=== PATIENT | male | born 1950 | race Caucasian/White ===

== ENCOUNTER 2019-06-17 07:04 | Emergency (ER) | payer MEDICARE ==
[~2019-06-17] VITALS: Ht 182.9 cm; Wt 74.9 kg
[2019-06-17] MEDS ORDERED: ondansetron/PF 4mg/2ml inj IV ONE (07:15)
--- NOTE | 2019-06-17 07:33 | NUR ---
Dr. Wells at bedside.
[2019-06-17] MEDS ORDERED: normal saline 1000ML IV soln IVB ONE (07:50)
[2019-06-17 08:03] LABS: BASOPHILS % (AUTO) 0.7 % (0-1); EOSINOPHILS # (AUTO) 0.3 X10'3 (0-0.9); EOSINOPHILS % (AUTO) 4.2 % (0-6); HEMATOCRIT 29.1 % (42.0-52.0); HEMOGLOBIN 9.6 g/dl (14.0-17.9); LYMPHOCYTES # (AUTO) 1.2 X10'3 (1.1-4.8); LYMPHOCYTES % (AUTO) 16.9 % (21-51); MEAN CORPUSCULAR HEMOGLOBIN 30.2 PG (27.0-31.0); MEAN CORPUSCULAR HGB CONC 32.8 g/dL (33.0-36.5); MEAN CORPUSCULAR VOLUME 92.1 FL (78-98); MEAN PLATELET VOLUME 6.5 FL (7.4-10.4); MONOCYTES # (AUTO) 0.4 X10'3 (0-0.9); MONOCYTES % (AUTO) 5.4 % (2-12); NEUTROPHILS # (AUTO) 5.2 X10'3 (1.8-7.7); NEUTROPHILS % (AUTO) 72.8 % (42-75); PLATELET COUNT 210 X10'3 (140-440); RED BLOOD COUNT 3.16 X10'6 (4.70-6.10); RED CELL DISTRIBUTION WIDTH 18.3 % (11.5-14.5); WHITE BLOOD COUNT 7.1 X10'3 (4.5-11.0)
[2019-06-17 08:20] LABS: CLARITY,URINE CLEAR (Clear); COLOR,URINE YELLOW (Yellow); GLUCOSE, URINE NEGATIVE (Neg); KETONES,URINE NEGATIVE (Neg); LEUKOCYTE ESTERASE ,URINE SMALL (Neg); NITRITES, URINE NEGATIVE (Neg); OCCULT BLOOD,URINE LARGE (Neg); PROTEIN,URINE TRACE mg/dl (Neg); UROBILINOGEN,URINE 0.2 E.U/dL (0.2-1.0)
[2019-06-17 08:24] LABS: UA COLLECTION TYPE FOLEY CATH
[2019-06-17 08:27] LABS: ALANINE AMINOTRANSFERASE 31 U/L (12-78); ALBUMIN 2.5 G/DL (3.4-5.0); ALBUMIN/GLOBULIN RATIO 0.4 (1.1-1.5); ALKALINE PHOSPHATASE 126 IU/L (46-116); ANION GAP 1 (8-16); ASPARTATE AMINO TRANSFERASE 38 U/L (10-37); BILIRUBIN,TOTAL 0.2 MG/DL (0.1-1.0); BLOOD UREA NITROGEN 25 MG/DL (7-18); BUN/CREATININE RATIO 26.3 (5.4-32.0); CALCIUM 8.6 MG/DL (8.5-10.1); CHLORIDE 104 MMOL/L (99-107); CREATININE 0.95 MG/DL (0.60-1.10); GLUCOSE 91 MG/DL (70-104); LIPASE 90 U/L (73-393); SODIUM 138 MMOL/L (135-145); TOTAL CARBON DIOXIDE 32.6 MMOL/L (24-32); TOTAL PROTEIN 8.1 G/DL (6.4-8.2); eGFR 79 ML/MIN
[2019-06-17 08:29] LABS: POTASSIUM 4.4 MMOL/L (3.5-5.1)
[2019-06-17 08:31] LABS: BACTERIA,URINE FEW /HPF (Neg); MUCUS STRANDS NONE SEEN /LPF (Neg); RBC,URINE 20-50 /HPF (0-2); SQUAMOUS EPITHELIAL CELL,UR NONE SEEN /LPF (FEW); TRANSITIONAL EPI CELLS,URINE FEW /HPF
[2019-06-17 08:32] LABS: WBC CLUMPS,URINE FEW /HPF (NEGATIVE)
[2019-06-17] MEDS ORDERED: KEF125L GT (08:52)
[2019-06-17] MEDS ORDERED: AZIT200S47 GT (08:52)
[2019-06-17 09:08] VITALS: BP 120/62
== END 2019-06-17 09:16 | disposition home or self-care (01) ==
LOC: ER 07:06
DX: K56.7 Ileus, unspecified (principal); R11.2 Nausea with vomiting, unspecified; N39.0 Urinary tract infection, site not specified; J18.9 Pneumonia, unspecified organism; G89.29 Other chronic pain; Z88.5 Allergy status to narcotic agent; Z91.040 Latex allergy status; Z88.8 Allergy status to other drugs, medicaments and biological substances; Z79.899 Other long term (current) drug therapy
CPT/HCPCS: 36415; 74176; 80053; 81001; 83690; 85025; 87088; 96361; 96374; 99284; J2405; J7030

== ENCOUNTER 2019-07-12 10:51 | Inpatient (IN) | payer MEDICARE, MEDICAID ==
[~2019-07-12] VITALS: Ht 185.4 cm; Wt 68.6 kg
[~2019-07-12 10:51] MED LIST: AZIT200S47 GT
[2019-07-12 11:28] LABS: BASOPHILS % (AUTO) 0.8 % (0-1); EOSINOPHILS # (AUTO) 0.3 X10'3 (0-0.9); HEMATOCRIT 29.7 % (42.0-52.0); LYMPHOCYTES # (AUTO) 1.4 X10'3 (1.1-4.8); MEAN CORPUSCULAR HEMOGLOBIN 30.1 PG (27.0-31.0); MEAN CORPUSCULAR HGB CONC 33.6 g/dL (33.0-36.5); MEAN CORPUSCULAR VOLUME 89.5 FL (78-98); MEAN PLATELET VOLUME 6.2 FL (7.4-10.4); MONOCYTES # (AUTO) 0.5 X10'3 (0-0.9); MONOCYTES % (AUTO) 8.6 % (2-12); NEUTROPHILS # (AUTO) 3.5 X10'3 (1.8-7.7); NEUTROPHILS % (AUTO) 60.6 % (42-75); PLATELET COUNT 217 X10'3 (140-440); RED BLOOD COUNT 3.31 X10'6 (4.70-6.10); RED CELL DISTRIBUTION WIDTH 18.4 % (11.5-14.5); WHITE BLOOD COUNT 5.7 X10'3 (4.5-11.0)
[2019-07-12] MEDS ORDERED: ondansetron/PF 4mg/2ml inj IV ONE (11:40)
[2019-07-12] MEDS ORDERED: normal saline 1000ML IV soln IVB ONE (11:40)
[2019-07-12 11:42] LABS: ALANINE AMINOTRANSFERASE 137 U/L (12-78); ALBUMIN 2.6 G/DL (3.4-5.0); ALBUMIN/GLOBULIN RATIO 0.4 (1.1-1.5); ALKALINE PHOSPHATASE 154 IU/L (46-116); ANION GAP 6 (8-16); ASPARTATE AMINO TRANSFERASE 114 U/L (10-37); BILIRUBIN,TOTAL 0.2 MG/DL (0.1-1.0); BLOOD UREA NITROGEN 24 MG/DL (7-18); BUN/CREATININE RATIO 23.1 (5.4-32.0); CALCIUM 8.7 MG/DL (8.5-10.1); CHLORIDE 101 MMOL/L (99-107); CREATININE 1.04 MG/DL (0.60-1.10); GLUCOSE 83 MG/DL (70-104); LIPASE 83 U/L (73-393); POTASSIUM 4.3 MMOL/L (3.5-5.1); SODIUM 140 MMOL/L (135-145); TOTAL CARBON DIOXIDE 33.1 MMOL/L (24-32); TOTAL PROTEIN 9.3 G/DL (6.4-8.2); eGFR 71 ML/MIN
[2019-07-12] MEDS ORDERED: piperacillin/tazo 3.375gm/50ml 50 ML IV ONE (12:20)
[2019-07-12] MEDS ORDERED: metoclopramide 5 mg/ml inj IV ONE (12:20)
[2019-07-12 12:50] LABS: CLARITY,URINE CLOUDY (Clear); COLOR,URINE YELLOW (Yellow); GLUCOSE, URINE NEGATIVE (Neg); KETONES,URINE NEGATIVE (Neg); LEUKOCYTE ESTERASE ,URINE LARGE (Neg); NITRITES, URINE NEGATIVE (Neg); OCCULT BLOOD,URINE LARGE (Neg); PH,URINE 7.5 (4.8-8.0); PROTEIN,URINE 30 mg/dl (Neg); UA COLLECTION TYPE FOLEY CATH; UROBILINOGEN,URINE 0.2 E.U/dL (0.2-1.0)
[2019-07-12 12:55] LABS: BACTERIA,URINE 2+ /HPF (Neg); RBC,URINE TNTC /HPF (0-2); SQUAMOUS EPITHELIAL CELL,UR FEW /LPF (FEW); WBC,URINE TNTC /HPF (0-4)
[2019-07-12] MEDS ORDERED: mag hydrox/Alum hydrox/simeth 30ml oral suspension PO PRN (12:55)
[2019-07-12] MEDS ORDERED: potassium CL 10mEq/100ml bag 100 ML IV PRN ×2 (12:55)
[2019-07-12] MEDS ORDERED: magnesium hydroxide 30ml (MOM) UD suspension PO PRN (12:55)
[2019-07-12] MEDS ORDERED: magnesium Cl slow-release 64mg tablet PO PRN (12:55)
[2019-07-12] MEDS ORDERED: potassium Cl 20 mEq SR tablet PO PRN ×2 (12:55)
[2019-07-12] MEDS ORDERED: magnesium 4gm in 100ml NS 100 ML IV PRN (12:55)
[2019-07-12] MEDS ORDERED: magnesium 2GM in 50ml NS 50 ML IV PRN (12:55)
[2019-07-12] MEDS ORDERED: acetaminophen 325mg tablet PO PRN ×2 (12:55)
[2019-07-12] MEDS ORDERED: ondansetron/PF 4mg/2ml inj IV PRN (12:55)
[2019-07-12] MEDS: normal saline 1000ml 1,000 ML IV SCH ×2 (13:27→23:21)
[2019-07-12] MEDS ORDERED: LIDOcaine 2% 10ml TOPICAL JELLY (Urojet) MM ONE (13:30)
[2019-07-12] MEDS ORDERED: TRAM50TA2 GT (14:00)
[2019-07-12] MEDS ORDERED: ARGI500P3 GT (14:00)
[2019-07-12] MEDS ORDERED: CIPR500T5 GT (14:00)
[2019-07-12] MEDS ORDERED: MIRT15TA8 GT (14:00)
[2019-07-12] MEDS ORDERED: LEVO88TA7 GT (14:00)
[2019-07-12] MEDS ORDERED: CYCL-1 NG (14:00)
[2019-07-12] MEDS ORDERED: METO5SOL GT (14:00)
[2019-07-12] MEDS ORDERED: FAMO20TA8 GT (14:00)
[2019-07-12] MEDS ORDERED: ROSU20TA31 GT (14:00)
[2019-07-12] MEDS ORDERED: FERR15DR GT (14:00)
[2019-07-12] MEDS ORDERED: GABA250S2 GT (14:00)
[2019-07-12] MEDS ORDERED: CYAN-51 GT (14:06)
[2019-07-12] MEDS ORDERED: MULT9LIQ7 GT (14:06)
[2019-07-12] MEDS ORDERED: ASCO500C15 GT (14:13)
[2019-07-12] MEDS ORDERED: OMEP-50 GT (14:13)
[2019-07-12] MEDS ORDERED: POLY17PO10 PO (14:13)
[2019-07-12] MEDS ORDERED: POLY17PO10 GT (14:22)
--- NOTE | 2019-07-12 15:51 | NUR ---
RECEIVED REPORT FROM NEERAJ DAVID FROM ER
[2019-07-12] MEDS ORDERED: piperacillin/tazo 3.375gm/50ml 50 ML IV SCH (16:00)
--- NOTE | 2019-07-12 16:20 | NUR ---
PATIENT ARRIVED ON UNIT, ORIENTED TO ROOM, 2RN SKIN CHECK DONE, PICTURES OR WOUNDS TAKEN, CALL LIGHT IN REACH
[2019-07-12 16:25] VITALS: BP 137/66
--- NOTE | 2019-07-12 18:35 | NUR ---
Problems reprioritized. Patient report given, questions answered & plan of care reviewed with NEERAJ JOHNSON.
[2019-07-12 19:15] VITALS: BP 143/74
[2019-07-12] MEDS: metoclopramide 5mg/5ml oral solution NG SCH ×2 (19:40→23:21)
[2019-07-12] MEDS: piperacillin/tazo 3.375gm/50ml 50 ML IV SCH (19:40)
[2019-07-12] MEDS: K and/or MAG REPLACEMENT MC SCH (20:00)
[2019-07-12] MEDS: famotidine 10mg tablet PEG SCH (20:28)
[2019-07-12] MEDS: ascorbic acid 500mg tablet NG SCH (20:28)
[2019-07-12] MEDS: gabapentin 300mg capsule NG SCH (20:28)
[2019-07-12] MEDS: heparin, porcine 5000 units/ml vial SQ SCH (20:29)
[2019-07-12] MEDS: cyclobenzaprine 10mg tablet NG SCH (23:21)
[2019-07-13] VITALS: BP 104/60
[2019-07-13] MEDS: piperacillin/tazo 3.375gm/50ml 50 ML IV SCH ×2 (04:04→15:29)
[2019-07-13 04:51] LABS: BASOPHILS % (AUTO) 0.6 % (0-1); EOSINOPHILS # (AUTO) 0.2 X10'3 (0-0.9); EOSINOPHILS % (AUTO) 4.8 % (0-6); HEMATOCRIT 25.9 % (42.0-52.0); HEMOGLOBIN 8.6 g/dl (14.0-17.9); LYMPHOCYTES # (AUTO) 1.3 X10'3 (1.1-4.8); LYMPHOCYTES % (AUTO) 25.7 % (21-51); MEAN CORPUSCULAR HGB CONC 33.3 g/dL (33.0-36.5); MEAN PLATELET VOLUME 6.4 FL (7.4-10.4); MONOCYTES # (AUTO) 0.4 X10'3 (0-0.9); MONOCYTES % (AUTO) 8.6 % (2-12); NEUTROPHILS % (AUTO) 60.3 % (42-75); PLATELET COUNT 158 X10'3 (140-440); RED BLOOD COUNT 2.88 X10'6 (4.70-6.10); RED CELL DISTRIBUTION WIDTH 17.6 % (11.5-14.5); WHITE BLOOD COUNT 4.9 X10'3 (4.5-11.0)
[2019-07-13 04:54] LABS: ALBUMIN 2.2 G/DL (3.4-5.0); ANION GAP 7 (8-16); BLOOD UREA NITROGEN 21 MG/DL (7-18); BUN/CREATININE RATIO 20.4 (5.4-32.0); CALCIUM 8.2 MG/DL (8.5-10.1); CHLORIDE 107 MMOL/L (99-107); CREATININE 1.03 MG/DL (0.60-1.10); GLUCOSE 74 MG/DL (70-104); MAGNESIUM 2.1 MG/DL (1.5-2.4); POTASSIUM 4.2 MMOL/L (3.5-5.1); SODIUM 142 MMOL/L (135-145); TOTAL CARBON DIOXIDE 28.2 MMOL/L (24-32); eGFR 72 ML/MIN
[2019-07-13 07:00] VITALS: BP 141/80
--- NOTE | 2019-07-13 07:03 | NUR ---
Patient in room [facility]ABHU 340. I have received report from NEERAJ JOHNSON and had the opportunity to ask questions and assume patient care.
--- NOTE | 2019-07-13 07:28 | NUR ---
Problems reprioritized. Patient report given, questions answered & plan of care reviewed with SANDRO. Addendum: 07/13/19 at 0728 by Matty Wynn RN Amended: Links added.
[2019-07-13] MEDS ORDERED: ferrous sulfate 300mg/5ml UD oral liquid PEG SCH (08:00)
[2019-07-13] MEDS: polyethylene glycol 3350 17gm powd pack GT SCH (08:00)
[2019-07-13] MEDS: K and/or MAG REPLACEMENT MC SCH ×2 (08:00→19:02)
[2019-07-13] MEDS ORDERED: polyethylene glycol 3350 17gm powd pack PO SCH (08:00)
[2019-07-13] MEDS ORDERED: mirtazapine 15mg tablet PEG SCH (08:00)
[2019-07-13] MEDS ORDERED: ARGININE PO SCH (08:00)
[2019-07-13] MEDS: normal saline 1000ml 1,000 ML IV SCH ×2 (09:36→18:50)
[2019-07-13] MEDS: levoTHYROXINE 88mcg tablet GT SCH (09:37)
[2019-07-13] MEDS: gabapentin 300mg capsule NG SCH ×3 (09:37→20:54)
[2019-07-13] MEDS: metoclopramide 5mg/5ml oral solution NG SCH ×4 (09:37→20:54)
[2019-07-13] MEDS: cyclobenzaprine 10mg tablet NG SCH ×3 (09:37→20:53)
[2019-07-13] MEDS: famotidine 10mg tablet PEG SCH ×2 (09:37→20:54)
[2019-07-13] MEDS: ascorbic acid 500mg tablet NG SCH ×2 (09:38→20:53)
[2019-07-13] MEDS: pantoprazole 40 MG vial IV SCH (09:38)
[2019-07-13] MEDS: heparin, porcine 5000 units/ml vial SQ SCH ×2 (09:46→20:38)
--- NOTE | 2019-07-13 11:11 | NUR ---
HELD MIRALAX DUE REPORTS OF WATERY STOOLS AND DUE TO POTENTIAL BOWEL OBSTRUCTION
[2019-07-13 12:19] VITALS: BP 107/80
--- NOTE | 2019-07-13 15:22 | NUR ---
TF consult: Pt c/o constant nausea and bilious vomiting and admit with partial small bowel obstruction/ileus and UTI. Pt with hx intestinal malrotation, achalasia, and has G-tube feeding since about 1 year per H&P. Pt currently with NG tube in place. Patient's caregiver seen at bedside. Caregiver reports patient's home TF regimen is continuous Osmolite 1.2 with goal rate of 75 mL/hr with additional 200 mL water flushes Q6H. Pt takes Miralax at home for routine BMs. Caregiver agrees to using TF formula available at [facility] as we currently do not carry Osmolite. Pt would benefit from Jevity 1.2 to provide fiber to assist with bowel regularity. Per caregiver pt is not supposed to take anything orally however states that pt doesn't like that being the case and occasionally can be found drinking soda despite the known risk for aspiration. Per caregiver pt had an outpatient appointment with a speech therapist today however pt was unable to go d/t current admit status, d/w recommendation for ST consult for MBS. LBM 07/12 however caregiver reports pt with small formed BM today. Pt with low Yuniel of 11, per physical assessment pt with an abrasion to right buttock and left ankle. Wound care has been consulted for further skin assessment. Patient's caregiver was provided with RD contact information. Will continue to follow closely. Recommendations: 1) Continuous Jevity 1.2 via PEG to begin at 20 mL/hr and advance by 20 mL Q8H as tolerated to goal rate of 75 mL/hr to provide: 1680 mL total volume/day, 2160 kcal, 93 g protein, and 1356 mL water 2) Additional 130 mL water flush Q4H 3) Prealbumin q /; daily weights 4) Swallow study to determine appropriateness for PO intake 5) Routine bowel care 6) Obtain scaled weight Addendum: 07/13/19 at [address] Amended: Links added.
[2019-07-13 18:15] VITALS: BP 132/77
--- NOTE | 2019-07-13 18:52 | NUR ---
Patient in room [facility] 340. I have received report from Sherry Tavera RN and had the opportunity to ask questions and assume patient care.
--- NOTE | 2019-07-13 18:56 | NUR ---
PATIENT INFO: PATIENT CAN SWALLOW BUT HAS SILENT ASPARATIVE EPISODES, HE DOES NOT COUGH WHEN FLUID OR FOOD HAS ENTERED HIS LUNGS DURING SWALLOWING. PATIENT IS POTENTIALLY GOING TO HAVE A [facility] SWALLOW STUDY TOMORROW (07/14/2019)
--- NOTE | 2019-07-13 18:59 | NUR ---
Problems reprioritized. Patient report given, questions answered & plan of care reviewed with NEERAJ NORIEGA.
[2019-07-13] MEDS: mirtazapine 15mg tablet PEG SCH (20:54)
[2019-07-14] VITALS: BP 137/73
[2019-07-14 05:10] LABS: BASOPHILS % (AUTO) 0.8 % (0-1); EOSINOPHILS # (AUTO) 0.1 X10'3 (0-0.9); HEMATOCRIT 28.1 % (42.0-52.0); HEMOGLOBIN 9.3 g/dl (14.0-17.9); LYMPHOCYTES # (AUTO) 1.3 X10'3 (1.1-4.8); LYMPHOCYTES % (AUTO) 23.9 % (21-51); MEAN CORPUSCULAR HGB CONC 33.2 g/dL (33.0-36.5); MEAN CORPUSCULAR VOLUME 90.1 FL (78-98); MEAN PLATELET VOLUME 6.5 FL (7.4-10.4); MONOCYTES # (AUTO) 0.4 X10'3 (0-0.9); MONOCYTES % (AUTO) 6.6 % (2-12); NEUTROPHILS # (AUTO) 3.7 X10'3 (1.8-7.7); NEUTROPHILS % (AUTO) 66.7 % (42-75); PLATELET COUNT 197 X10'3 (140-440); RED BLOOD COUNT 3.12 X10'6 (4.70-6.10); RED CELL DISTRIBUTION WIDTH 17.8 % (11.5-14.5); WHITE BLOOD COUNT 5.5 X10'3 (4.5-11.0)
[2019-07-14 05:38] LABS: ALBUMIN 2.3 G/DL (3.4-5.0); ANION GAP 11 (8-16); BLOOD UREA NITROGEN 19 MG/DL (7-18); BUN/CREATININE RATIO 18.1 (5.4-32.0); CALCIUM 8.4 MG/DL (8.5-10.1); CHLORIDE 108 MMOL/L (99-107); CREATININE 1.05 MG/DL (0.60-1.10); GLUCOSE 86 MG/DL (70-104); POTASSIUM 3.7 MMOL/L (3.5-5.1); PREALBUMIN 12.2 MG/DL (19-36); SODIUM 143 MMOL/L (135-145); TOTAL CARBON DIOXIDE 23.6 MMOL/L (24-32); eGFR 70 ML/MIN
--- NOTE | 2019-07-14 06:16 | NUR ---
Problems reprioritized. Patient report given, questions answered & plan of care reviewed with NEERAJ Coon.
--- NOTE | 2019-07-14 06:23 | NUR ---
Patient in room [facility] 340. I have received report from NEERAJ Montalvo and had the opportunity to ask questions and assume patient care.
[2019-07-14 07:00] VITALS: BP 138/75
[2019-07-14] MEDS: K and/or MAG REPLACEMENT MC SCH ×2 (07:08→19:07)
[2019-07-14] MEDS: polyethylene glycol 3350 17gm powd pack GT SCH (07:10)
[2019-07-14] MEDS: pantoprazole 40 MG vial IV SCH (07:32)
[2019-07-14] MEDS: heparin, porcine 5000 units/ml vial SQ SCH ×2 (07:32→20:36)
[2019-07-14] MEDS ORDERED: levoFLOXACIN-Levaquin 750MG/D5 150 ML IV SCH (08:00)
[2019-07-14] MEDS: cyclobenzaprine 10mg tablet NG SCH ×3 (08:02→20:36)
[2019-07-14] MEDS: ferrous sulfate 300mg/5ml UD oral liquid PEG SCH (08:02)
[2019-07-14] MEDS: gabapentin 300mg capsule NG SCH ×3 (08:02→20:36)
[2019-07-14] MEDS: metoclopramide 5mg/5ml oral solution NG SCH ×4 (08:02→20:36)
[2019-07-14] MEDS: famotidine 10mg tablet PEG SCH ×2 (08:02→20:35)
[2019-07-14] MEDS: levoTHYROXINE 88mcg tablet GT SCH (08:03)
[2019-07-14] MEDS: ascorbic acid 500mg tablet NG SCH ×2 (08:03→20:36)
--- NOTE | 2019-07-14 08:25 | NUR ---
PAGER ID: [phone] MESSAGE: Regarding RM: [id number] Abrangary Fontanez: Radiology had some concerns about the barium swallow study due to his aspiration risk, they feel it may be unsafe, give them a call at [phone]. NEERAJ Coon Ext [phone]
--- NOTE | 2019-07-14 09:13 | NUR ---
PAGER ID: [phone] MESSAGE: RE: [id number] Abran Enamorado + NEERAJ Coon Ext [phone]
[2019-07-14] MEDS ORDERED: VANCOMYCIN 1gm/H2O 200ml PB 200 ML IV ONE (10:15)
[2019-07-14 11:00] VITALS: BP 136/77
[2019-07-14 18:00] VITALS: BP 129/77
--- NOTE | 2019-07-14 18:19 | NUR ---
Problems reprioritized. Patient report given, questions answered & plan of care reviewed with NEERAJ Montalvo.
--- NOTE | 2019-07-14 18:58 | NUR ---
Patient in room [facility] 340. I have received report from NEERAJ Coon and had the opportunity to ask questions and assume patient care.
[2019-07-14] MEDS: mirtazapine 15mg tablet PEG SCH (20:36)
[2019-07-14] MEDS: vancomycin/NS 1 GM ADD-VANTAGE 250 ML IV SCH (23:06)
[2019-07-15] VITALS: BP 102/65
[2019-07-15 04:24] LABS: BASOPHILS % (AUTO) 0.7 % (0-1); EOSINOPHILS # (AUTO) 0.1 X10'3 (0-0.9); EOSINOPHILS % (AUTO) 1.8 % (0-6); HEMATOCRIT 28.1 % (42.0-52.0); HEMOGLOBIN 9.4 g/dl (14.0-17.9); LYMPHOCYTES # (AUTO) 1.4 X10'3 (1.1-4.8); LYMPHOCYTES % (AUTO) 26.2 % (21-51); MEAN CORPUSCULAR HGB CONC 33.5 g/dL (33.0-36.5); MEAN CORPUSCULAR VOLUME 89.6 FL (78-98); MEAN PLATELET VOLUME 6.4 FL (7.4-10.4); MONOCYTES # (AUTO) 0.5 X10'3 (0-0.9); MONOCYTES % (AUTO) 8.7 % (2-12); NEUTROPHILS # (AUTO) 3.4 X10'3 (1.8-7.7); NEUTROPHILS % (AUTO) 62.6 % (42-75); PLATELET COUNT 221 X10'3 (140-440); RED BLOOD COUNT 3.14 X10'6 (4.70-6.10); RED CELL DISTRIBUTION WIDTH 17.5 % (11.5-14.5); WHITE BLOOD COUNT 5.4 X10'3 (4.5-11.0)
[2019-07-15 06:21] LABS: ALBUMIN 2.4 G/DL (3.4-5.0); ANION GAP 13 (8-16); BLOOD UREA NITROGEN 17 MG/DL (7-18); BUN/CREATININE RATIO 17.2 (5.4-32.0); CALCIUM 8.4 MG/DL (8.5-10.1); CHLORIDE 107 MMOL/L (99-107); CREATININE 0.99 MG/DL (0.60-1.10); GLUCOSE 110 MG/DL (70-104); MAGNESIUM 1.9 MG/DL (1.5-2.4); POTASSIUM 3.2 MMOL/L (3.5-5.1); SODIUM 142 MMOL/L (135-145); eGFR 75 ML/MIN
--- NOTE | 2019-07-15 06:25 | NUR ---
Patient in room [facility] 340. I have received report from nithya menjivar and had the opportunity to ask questions and assume patient care.
--- NOTE | 2019-07-15 06:50 | NUR ---
Pt tolerating tube feeding. No compliant of n/v. Tube feeding increased to 60 mL/hr. Goal rate 75 mL/hr.
--- NOTE | 2019-07-15 06:54 | NUR ---
Problems reprioritized. Patient report given, questions answered & plan of care reviewed with NEERAJ Patel.
[2019-07-15 08:00] VITALS: BP_SYST 137; BP_SYST 155; BP_DIAS 78; BP_DIAS 79
[2019-07-15] MEDS: K and/or MAG REPLACEMENT MC SCH ×4 (08:00→19:29)
[2019-07-15] MEDS: metoclopramide 5mg/5ml oral solution NG SCH ×4 (08:00→21:36)
[2019-07-15] MEDS: heparin, porcine 5000 units/ml vial SQ SCH ×2 (08:00→20:01)
[2019-07-15] MEDS: pantoprazole 40 MG vial IV SCH (08:20)
[2019-07-15] MEDS: cyclobenzaprine 10mg tablet NG SCH ×3 (08:20→21:37)
[2019-07-15] MEDS: gabapentin 300mg capsule NG SCH ×3 (08:20→21:37)
[2019-07-15] MEDS: ascorbic acid 500mg tablet NG SCH ×2 (08:20→20:01)
[2019-07-15] MEDS: ferrous sulfate 300mg/5ml UD oral liquid PEG SCH (08:20)
[2019-07-15] MEDS: levoTHYROXINE 88mcg tablet GT SCH (08:20)
[2019-07-15] MEDS: famotidine 10mg tablet PEG SCH (08:20)
[2019-07-15] MEDS: polyethylene glycol 3350 17gm powd pack GT SCH (08:21)
[2019-07-15] MEDS: levoFLOXACIN-Levaquin 500mg/D5 100 ML IV SCH (08:21)
--- NOTE | 2019-07-15 10:00 | NUR ---
DC NG TUBE PER ORDER. PT TOLERATED WELL
[2019-07-15] MEDS: vancomycin/NS 1 GM ADD-VANTAGE 250 ML IV SCH ×2 (10:29→21:57)
[2019-07-15 12:00] VITALS: BP_SYST 127; BP_SYST 149; BP_DIAS 76; BP_DIAS 93
--- NOTE | 2019-07-15 12:28 | NUR ---
Reassessment: Patient tolerating TF with GRV WNL. TF currently running at 60 mL/hr working towards goal rate of 75 mL/hr. Pt pending MBS today. LBM 07/14. No further nutrition intervention warranted at this time. Will continue to follow closely. Recommendations: 1) Continuous Jevity 1.2 via PEG to begin at 20 mL/hr and advance by 20 mL Q8H as tolerated to goal rate of 75 mL/hr to provide: 1680 mL total volume/day, 2160 kcal, 93 g protein, and 1356 mL water 2) Additional 130 mL water flush Q4H 3) Prealbumin q /; daily weights 4) Swallow study to determine appropriateness for PO intake 5) Routine bowel care 6) Wt per rx Addendum: 07/15/19 at [address] Amended: Links added.
--- NOTE | 2019-07-15 14:15 | NUR ---
PRESSURE ULCER EDUCATION: DEFINITION: A pressure ulcer is an area of skin that breaks down when you stay in one position too long. The constant pressure against the skin reduces the blood flow to that area and the affected tissue dies. CAUSES: "Being bedridden or in a wheelchair "Fragile skin "Having a chronic condition, such as diabetes or vascular disease "Inability to move certain parts of your body without assistance "Older age "Incontinence of urine or stool SYMPTOMS: "A reddened area that DOES NOT turn white when pressed on - this can be the beginning of a pressure ulcer "A blister, deep sore or a crater - these can be advanced pressure ulcers FIRST AID: "Relieve the pressure on this area "Keep the area clean and dry "Call your primary doctor if you see any of the above symptoms "DO NOT massage the area "DO NOT use a donut shaped or ring shaped pillow- these actually interfere with the blood flow and cause complications PREVENTION: "Check for pressure ulcers everyday "Change position at least every two hours to relieve pressure "Use items that help relieve pressure- pillows, sheepskin, foam padding, and powders. "Keep skin clean and dry "Eat healthy well balanced meals "Exercise daily IF YOU SEE ANY OF THESE SYMPTOMS WHILE IN THE HOSPITAL - TELL YOUR NURSE IMMEDIATELY. IF YOU SEE ANY OF THESE SYMPTOMS WHILE AT HOME OR HAVE ANY QUESTIONS OR CONCERNS ABOUT PRESSURE ULCERS - CALL YOUR PRIMARY DOCTOR IMMEDIATELY. Addendum: 07/15/19 at 1415 by Carmela Gil RN Amended: Links added.
[2019-07-15] MEDS ORDERED: potassium Cl 20 mEq SR tablet PO PRN ×2 (14:25)
[2019-07-15] MEDS ORDERED: magnesium 4gm in 100ml NS 100 ML IV PRN (14:25)
[2019-07-15] MEDS ORDERED: magnesium Cl slow-release 64mg tablet PO PRN (14:25)
[2019-07-15] MEDS: potassium CL 10mEq/100ml bag 100 ML IV PRN ×2 (14:44→19:56)
[2019-07-15 18:00] VITALS: BP 129/73
--- NOTE | 2019-07-15 18:40 | NUR ---
Problems reprioritized. Patient report given, questions answered & plan of care reviewed with RUBI PICKARD.
--- NOTE | 2019-07-15 18:41 | NUR ---
Patient in room [facility] 340. I have received report from NEERAJ Patel and had the opportunity to ask questions and assume patient care.
[2019-07-15] MEDS ORDERED: famotidine 20mg tablet PEG SCH (20:55)
[2019-07-15] MEDS ORDERED: famotidine 20mg tablet PEG ONE (21:00)
[2019-07-15] MEDS ORDERED: VANCOMYCIN LEVEL IV ONE (21:30)
[2019-07-15] MEDS: mirtazapine 15mg tablet PEG SCH (21:37)
[2019-07-16] VITALS: BP 106/76
[2019-07-16] MEDS: potassium CL 10mEq/100ml bag 100 ML IV PRN ×2 (00:25→02:09)
--- NOTE | 2019-07-16 06:17 | NUR ---
Patient in room [facility] 340. I have received report from RUBI PICKARD and had the opportunity to ask questions and assume patient care.
[2019-07-16 06:32] LABS: BASOPHILS % (AUTO) 0.7 % (0-1); EOSINOPHILS # (AUTO) 0.1 X10'3 (0-0.9); EOSINOPHILS % (AUTO) 1.8 % (0-6); HEMATOCRIT 26.4 % (42.0-52.0); HEMOGLOBIN 8.9 g/dl (14.0-17.9); LYMPHOCYTES # (AUTO) 1.4 X10'3 (1.1-4.8); LYMPHOCYTES % (AUTO) 29.5 % (21-51); MEAN CORPUSCULAR HEMOGLOBIN 30.1 PG (27.0-31.0); MEAN CORPUSCULAR HGB CONC 33.6 g/dL (33.0-36.5); MEAN CORPUSCULAR VOLUME 89.7 FL (78-98); MEAN PLATELET VOLUME 6.4 FL (7.4-10.4); MONOCYTES # (AUTO) 0.4 X10'3 (0-0.9); MONOCYTES % (AUTO) 9.5 % (2-12); NEUTROPHILS # (AUTO) 2.7 X10'3 (1.8-7.7); NEUTROPHILS % (AUTO) 58.5 % (42-75); PLATELET COUNT 198 X10'3 (140-440); RED BLOOD COUNT 2.94 X10'6 (4.70-6.10); RED CELL DISTRIBUTION WIDTH 18.1 % (11.5-14.5); WHITE BLOOD COUNT 4.6 X10'3 (4.5-11.0)
--- NOTE | 2019-07-16 06:35 | NUR ---
Problems reprioritized. Patient report given, questions answered & plan of care reviewed with NEERAJ Patel.
[2019-07-16 06:58] LABS: ALBUMIN 2.3 G/DL (3.4-5.0); ANION GAP 10 (8-16); BLOOD UREA NITROGEN 16 MG/DL (7-18); BUN/CREATININE RATIO 16.3 (5.4-32.0); CHLORIDE 111 MMOL/L (99-107); CREATININE 0.98 MG/DL (0.60-1.10); GLUCOSE 110 MG/DL (70-104); MAGNESIUM 1.8 MG/DL (1.5-2.4); POTASSIUM 3.4 MMOL/L (3.5-5.1); SODIUM 145 MMOL/L (135-145); TOTAL CARBON DIOXIDE 23.8 MMOL/L (24-32); eGFR 76 ML/MIN
[2019-07-16 08:00] VITALS: BP 135/73
[2019-07-16] MEDS: K and/or MAG REPLACEMENT MC SCH ×2 (08:00→08:42)
[2019-07-16] MEDS: heparin, porcine 5000 units/ml vial SQ SCH (08:00)
[2019-07-16] MEDS: metoclopramide 5mg/5ml oral solution NG SCH (08:25)
[2019-07-16] MEDS: ferrous sulfate 300mg/5ml UD oral liquid PEG SCH (08:25)
[2019-07-16] MEDS: gabapentin 300mg capsule NG SCH (08:25)
[2019-07-16] MEDS: cyclobenzaprine 10mg tablet NG SCH (08:25)
[2019-07-16] MEDS: ascorbic acid 500mg tablet NG SCH (08:25)
[2019-07-16] MEDS: levoFLOXACIN-Levaquin 500mg/D5 100 ML IV SCH (08:26)
[2019-07-16] MEDS: pantoprazole 40 MG vial IV SCH (08:26)
[2019-07-16] MEDS: polyethylene glycol 3350 17gm powd pack GT SCH (08:26)
[2019-07-16] MEDS: levoTHYROXINE 88mcg tablet GT SCH (08:26)
[2019-07-16] MEDS ORDERED: LEVO500T89 PEG (08:43)
--- NOTE | 2019-07-16 09:23 | NUR ---
FLUSHED FC WITH 50 MLS STERILE WATER. FC NOW FLOWING
[2019-07-16 11:00] VITALS: BP 151/71
[2019-07-16] MEDS ORDERED: POLY17PO10 GT (11:50)
[2019-07-16] MEDS ORDERED: LEVO500T89 GT (11:52)
--- NOTE | 2019-07-20 13:19 | NUR ---
Case Management DC follow up: spoke w/Imelda at [facility] where pt resides. Pt is back to baseline, doing "pretty good". No c/o NV, having normal BMs/color good, having good urine output. No ase noted r/t polypharmacy. RNs, LVNs 12/01 care understands all medical needs of pt. Appts have been made for GI consult, urologist, PCP. No questions at this time.
== END 2019-07-16 13:11 | disposition home or self-care (01) | DRG 388 ==
LOC: ER 10:51 → ED HOLD 12:52 → SUR 3N 16:22
PROVIDERS: ADMIT Hospitalist; ATTEND Hospitalist
PROC: 0D9670Z Drainage of Stomach with Drainage Device, Via Natural or Artificial Opening (ICD-10-PCS; principal; 2019-07-12)
DX: K56.600 Partial intestinal obstruction, unspecified as to cause (principal); J69.0 Pneumonitis due to inhalation of food and vomit; N39.0 Urinary tract infection, site not specified; E03.9 Hypothyroidism, unspecified; K56.7 Ileus, unspecified; R13.10 Dysphagia, unspecified; G89.29 Other chronic pain; M54.9 Dorsalgia, unspecified; R14.0 Abdominal distension (gaseous); K22.0 Achalasia of cardia; B95.62 Methicillin resistant Staphylococcus aureus infection as the cause of diseases classified elsewhere; Z99.3 Dependence on wheelchair; Z88.5 Allergy status to narcotic agent; Z88.8 Allergy status to other drugs, medicaments and biological substances; Z91.040 Latex allergy status; Z93.1 Gastrostomy status
CPT/HCPCS: 36415; 71045; 74018; 74176; 74230; 80048; 80053; 80202; 81001; 82948; 83690; 83735; 84134; 84443; 85025; 87077; 87081; 87088; 87186; 92508; C9113; G0378; J1644; J1956; J2405; J2543; J2765; J3370; J3480; J7030; J8597

== ENCOUNTER 2019-11-23 20:00 | Emergency (ER) | payer MEDICARE, MEDICAID ==
[~2019-11-23] VITALS: Ht 182.9 cm; Wt 76.0 kg
[~2019-11-23 20:00] MED LIST changes: +ARGI500P3 GT; +ASCO500C15 GT; -AZIT200S47 GT; +CYAN-51 GT; +CYCL-1 GT; +FAMO20TA8 GT; +FERR15DR GT; +GABA250S2 GT; +LEVO88TA7 GT; +METO5SOL GT; +MIRT15TA8 GT; +MULT9LIQ7 GT; +NEOMYCIN; +OMEP-50 GT; +POLY119P2 GT; +POLYMYXIN B; +ROSU20TA31 GT; +TRAM50TA2 GT; +VITA40TA GT
[2019-11-23 22:28] VITALS: BP 115/73
[2019-12-06] MEDS ORDERED: BACL GT (21:34)
== END 2019-11-23 22:34 | disposition home or self-care (01) ==
LOC: ER 20:01
DX: K94.23 Gastrostomy malfunction (principal); G89.29 Other chronic pain; R47.02 Dysphasia; Z98.890 Other specified postprocedural states; Z88.5 Allergy status to narcotic agent; Z91.040 Latex allergy status; Z79.899 Other long term (current) drug therapy; Y83.3 Surgical operation with formation of external stoma as the cause of abnormal reaction of the patient, or of later complication, without mention of misadventure at the time of the procedure; Y92.89 Other specified places as the place of occurrence of the external cause
CPT/HCPCS: 99284

== ENCOUNTER 2019-11-30 22:14 | Emergency (ER) | payer MEDICARE, MEDICAID ==
[~2019-11-30] VITALS: Ht 182.9 cm; Wt 75.9 kg
[2019-11-30 22:19] VITALS: BP 148/80
--- NOTE | 2019-11-30 22:44 | NUR ---
Pt has pinholes in his G-tube which is causing leakage of admnistered meds and nutrition. No medical complaints; medical equipment issue only.
[2019-12-06] MEDS ORDERED: BACL GT (21:34)
== END 2019-12-01 00:11 | disposition home or self-care (01) ==
LOC: ER 22:15
DX: K94.23 Gastrostomy malfunction (principal); G89.29 Other chronic pain; R47.02 Dysphasia; Z98.890 Other specified postprocedural states; Z88.5 Allergy status to narcotic agent; Z91.040 Latex allergy status; Z79.899 Other long term (current) drug therapy
CPT/HCPCS: 99284

== ENCOUNTER 2019-12-05 11:14 | Day surgery (SDC) | payer MEDICARE, MEDICAID ==
[~2019-12-05] VITALS: Ht 182.9 cm; Wt 77.0 kg
[2019-12-05 12:20] VITALS: BP 128/76
[2019-12-05] MEDS ORDERED: cefazolin/dext.iso 2gm/50ml 50 ML IV ONE (12:25)
[2019-12-05] MEDS ORDERED: normal saline 1000ml 1,000 ML IV SCH (12:25)
[2019-12-05] MEDS ORDERED: OMEP40CA13 PEG (13:15)
[2019-12-05] MEDS ORDERED: CYCL-1 PO (13:15)
[2019-12-05] MEDS ORDERED: [UNRECOGNIZED DRUG - CODE] PEG (13:15)
[2019-12-05] MEDS ORDERED: POLY17PO10 PO (13:15)
[2019-12-05] MEDS ORDERED: FERR15DR PO (13:15)
[2019-12-05] MEDS ORDERED: iohexol 300 MG/1 ML 50ml polymer ONE (13:49)
[2019-12-05 14:14] VITALS: BP 162/74
[2019-12-05 14:33] VITALS: BP 162/74
[2019-12-06] MEDS ORDERED: BACL GT (21:34)
== END 2019-12-05 14:55 | disposition home or self-care (01) ==
LOC: SSTAY O 11:14
PROVIDERS: ATTEND Radiology Vascular & Interventional Radiology
DX: Z43.1 Encounter for attention to gastrostomy (principal); Z88.8 Allergy status to other drugs, medicaments and biological substances; Z88.5 Allergy status to narcotic agent; Z91.040 Latex allergy status; Z79.899 Other long term (current) drug therapy; Z82.49 Family history of ischemic heart disease and other diseases of the circulatory system; Z80.8 Family history of malignant neoplasm of other organs or systems
CPT/HCPCS: 49450; Q9967; B4087

== ENCOUNTER 2019-12-23 08:17 | Observation (INO) | payer MEDICARE, MEDICAID ==
[~2019-12-23] VITALS: Ht 182.9 cm; Wt 75.2 kg
[~2019-12-23 08:17] MED LIST changes: +BACL GT; -CYCL-1 GT; +CYCL-1 PO; -FERR15DR GT; +FERR15DR PO; -OMEP-50 GT; +OMEP40CA13 PEG; -POLY119P2 GT; +POLY17PO10 PO; -VITA40TA GT; +[UNRECOGNIZED DRUG - CODE] PEG
[2019-12-23] MEDS ORDERED: normal saline 1000ML IV soln IVB ONE (09:15)
[2019-12-23 09:45] LABS: BASOPHILS % (AUTO) 0.4 % (0-1); EOSINOPHILS # (AUTO) 0.2 X10'3 (0-0.9); HEMATOCRIT 26.8 % (42.0-52.0); HEMOGLOBIN 9.1 g/dl (14.0-17.9); LYMPHOCYTES # (AUTO) 1.1 X10'3 (1.1-4.8); LYMPHOCYTES % (AUTO) 17.3 % (21-51); MEAN CORPUSCULAR HEMOGLOBIN 31.9 PG (27.0-31.0); MEAN CORPUSCULAR HGB CONC 33.9 g/dL (33.0-36.5); MEAN CORPUSCULAR VOLUME 94.1 FL (78-98); MEAN PLATELET VOLUME 5.8 FL (7.4-10.4); MONOCYTES # (AUTO) 0.5 X10'3 (0-0.9); MONOCYTES % (AUTO) 7.4 % (2-12); NEUTROPHILS # (AUTO) 4.8 X10'3 (1.8-7.7); NEUTROPHILS % (AUTO) 71.9 % (42-75); PLATELET COUNT 130 X10'3 (140-440); RED BLOOD COUNT 2.85 X10'6 (4.70-6.10); RED CELL DISTRIBUTION WIDTH 14.7 % (11.5-14.5); WHITE BLOOD COUNT 6.7 X10'3 (4.5-11.0)
--- NOTE | 2019-12-23 09:47 | NUR ---
PT OUT TO CT VIA SUNIL WITH SERVICE ENGINEER
[2019-12-23 10:00] LABS: ALANINE AMINOTRANSFERASE 21 U/L (12-78); ALBUMIN 2.8 G/DL (3.4-5.0); ALBUMIN/GLOBULIN RATIO 0.5 (1.1-1.5); ALKALINE PHOSPHATASE 132 IU/L (46-116); ANION GAP 6 (8-16); ASPARTATE AMINO TRANSFERASE 25 U/L (10-37); BILIRUBIN,TOTAL 0.3 MG/DL (0.1-1.0); BLOOD UREA NITROGEN 32 MG/DL (7-18); BUN/CREATININE RATIO 32.7 (5.4-32.0); CALCIUM 8.7 MG/DL (8.5-10.1); CHLORIDE 99 MMOL/L (99-107); CREATININE 0.98 MG/DL (0.60-1.10); GLUCOSE 84 MG/DL (70-104); LIPASE 66 U/L (73-393); POTASSIUM 4.5 MMOL/L (3.5-5.1); SODIUM 136 MMOL/L (135-145); TOTAL CARBON DIOXIDE 31.5 MMOL/L (24-32); TOTAL PROTEIN 8.5 G/DL (6.4-8.2); eGFR 76 ML/MIN
--- NOTE | 2019-12-23 10:00 | NUR ---
PT RETURNS FROM CT
[2019-12-23] MEDS ORDERED: normal saline 1000ml 1,000 ML IV ONE (10:23)
[2019-12-23] MEDS ORDERED: morphine 2 MG/ML inj. syringe IV PRN (10:30)
[2019-12-23] MEDS ORDERED: acetaminophen 325mg tablet PO PRN (10:30)
[2019-12-23] MEDS ORDERED: ondansetron/PF 4mg/2ml inj IV PRN (10:30)
[2019-12-23] MEDS ORDERED: magnesium hydroxide 30ml (MOM) UD suspension PO PRN (10:30)
[2019-12-23] MEDS ORDERED: mag hydrox/Alum hydrox/simeth 30ml oral suspension PO PRN (10:30)
[2019-12-23 11:04] LABS: CLARITY,URINE TURBID (Clear); COLOR,URINE YELLOW (Yellow); GLUCOSE, URINE NEGATIVE (Neg); KETONES,URINE NEGATIVE (Neg); LEUKOCYTE ESTERASE ,URINE LARGE (Neg); NITRITES, URINE NEGATIVE (Neg); OCCULT BLOOD,URINE LARGE (Neg); PROTEIN,URINE 30 mg/dl (Neg); UROBILINOGEN,URINE 0.2 E.U/dL (0.2-1.0)
[2019-12-23 11:06] LABS: UA COLLECTION TYPE STRAIGHT CATH
[2019-12-23 11:08] LABS: WBC,URINE TNTC /HPF (0-4)
[2019-12-23 11:09] LABS: BACTERIA,URINE 3+ /HPF (Neg)
[2019-12-23] MEDS: normal saline 1000ml 1,000 ML IV SCH ×2 (11:09→16:23)
[2019-12-23 11:10] LABS: YEAST MANY /HPF (NEGATIVE)
[2019-12-23 11:11] LABS: SQUAMOUS EPITHELIAL CELL,UR NONE SEEN /LPF (FEW)
--- NOTE | 2019-12-23 13:07 | NUR ---
Requested hospital bed from [facility].
--- NOTE | 2019-12-23 13:43 | NUR ---
Patient noted with "pasty" BM x1,changed and repositioned for comfort.Emptied catheter with 750ml clear urine.Moved patient to a hospital bed.Picture taken to right buttock wound.
--- NOTE | 2019-12-23 13:48 | NUR ---
PATIENT TRANSFERRED TO HOSPITAL BED FOR COMFORT, STILL AWAITING BED ASSIGNMENT.
--- NOTE | 2019-12-23 14:29 | NUR ---
received report from Renata RN
[2019-12-23 15:10] VITALS: BP 136/77
[2019-12-23] MEDS ORDERED: metoclopramide 10mg tablet CORPAK ONE (15:35)
[2019-12-23] MEDS ORDERED: acetaminophen 325mg tablet CORPAK PRN (15:41)
[2019-12-23] MEDS ORDERED: acetaminophen 325mg tablet GT PRN (15:43)
[2019-12-23 18:00] VITALS: BP 147/83
--- NOTE | 2019-12-23 18:29 | NUR ---
Patient in room [facility] 352. I have received report from NEERAJ Gomez and had the opportunity to ask questions and assume patient care.
--- NOTE | 2019-12-23 18:30 | NUR ---
Problems reprioritized. Patient report given, questions answered & plan of care reviewed with NEERAJ Montalvo.
[2019-12-23] MEDS: ascorbic acid 500mg tablet PEG SCH (20:00)
[2019-12-23] MEDS: famotidine 10mg tablet PEG SCH (20:00)
[2019-12-23] MEDS: traMADol 50MG tablet GT SCH (20:00)
[2019-12-23] MEDS: gabapentin 300mg capsule GT SCH (21:00)
[2019-12-23] MEDS: cyclobenzaprine 10mg tablet PEG SCH (21:00)
--- NOTE | 2019-12-23 22:11 | NUR ---
Talk to Dr. Vital regarding patient's night medications. Informed Dr. Vital that pt has had a BM since on unit. Pt with no complaint of n/v but does have 2/[address] Vital, hold all PEG tube medications and administered heparin 5000 units subq and IV pain medication PRN. Pt came in with FC for neurogenic bladder. Received order for setiner. Will address PEG medications administration with day MD tomorrow. Will continue to monitor patient.
[2019-12-23] MEDS: heparin, porcine 5000 units/ml vial SQ SCH (22:36)
[2019-12-24 00:29] VITALS: BP 136/86
[2019-12-24] MEDS: normal saline 1000ml 1,000 ML IV SCH ×2 (00:38→16:56)
[2019-12-24] MEDS: traMADol 50MG tablet GT SCH ×5 (01:04→20:52)
--- NOTE | 2019-12-24 06:24 | NUR ---
Problems reprioritized. Patient report given, questions answered & plan of care reviewed with NEERAJ Albert.
--- NOTE | 2019-12-24 06:30 | NUR ---
Patient in room [facility] 352. I have received report from Katia PICKARD and had the opportunity to ask questions and assume patient care.
[2019-12-24 07:00] VITALS: BP 146/77
[2019-12-24] MEDS ORDERED: ARGININE GT SCH (08:00)
[2019-12-24] MEDS ORDERED: [UNRECOGNIZED DRUG - OTHER] SCH (08:00)
[2019-12-24] MEDS ORDERED: VITAMIN K2 100 MCG PEG SCH (08:00)
[2019-12-24] MEDS: cyanocobalamin 500mcg tablet PEG SCH (09:39)
[2019-12-24] MEDS: cyclobenzaprine 10mg tablet PEG SCH ×3 (09:40→20:51)
[2019-12-24] MEDS: ascorbic acid 500mg tablet PEG SCH ×2 (09:40→20:52)
[2019-12-24] MEDS: gabapentin 300mg capsule GT SCH ×3 (09:40→20:51)
[2019-12-24] MEDS: mirtazapine 15mg tablet PEG SCH (09:42)
[2019-12-24] MEDS: levoTHYROXINE 88mcg tablet GT SCH (09:43)
[2019-12-24] MEDS: polyethylene glycol 3350 17gm powd pack GT SCH (09:44)
[2019-12-24] MEDS: famotidine 10mg tablet PEG SCH ×2 (09:44→20:52)
[2019-12-24] MEDS: atorvastatin 20mg tablet GT SCH (09:44)
[2019-12-24] MEDS: ferrous sulfate 300mg/5ml UD oral liquid PEG SCH (09:52)
[2019-12-24] MEDS: pantoprazole 40 MG vial IV SCH (09:52)
[2019-12-24] MEDS: heparin, porcine 5000 units/ml vial SQ SCH ×2 (09:53→20:53)
[2019-12-24 11:25] VITALS: BP 170/70
--- NOTE | 2019-12-24 12:07 | NUR ---
Initial: Pt presented with abdominal pain and admit with ileus vs SBO. Pt s/p CT of abdomen and pelvis which shows a small bowel distention with air fluid levels suggesting ileus per H&P. Pt currently receiving routine prokinetic agent and routine bowel care. LBM 7/3, documented as small and moderate per GI trends. Pt currently NPO with PEG, no TF consult at this time. TF recommendations below for if to being TF during admission. Per ASPEN guidelines, TF does not need to be held unless gastric residuals are greater than 500 mL. Pt with hx poor TF tolerance via PEG and would benefit from PEGJ for improved tolerance. Pt has appropriately gained weight and is +8.2 kg since last scaled weight taken 12/07. Pt with a low Yuniel of 12, per physical assessment pt with no edema or wounds. Will continue to follow closely. Recommendations: 1) If to begin TF, continuous Osmolite 1.2 with goal rate of 70 mL/hr to provide: 1680 mL total volume/day, 2016 kcal, 93 g protein, and 1378 mL water; begin at 20 mL/hr and advance by 20 mL Q8H as tolerated to goal rate 2) If TF, additional 110 mL water flush Q4H to meet hydration needs (1 mL/kcal); monitor serum Na and adjust recommendations as appropriate 3) If TF, prealbumin q /; daily weights 4) Pt would benefit from PEGJ given hx poor TF tolerance with PEG 5) Routine bowel care 6) Continue prokinetic agent 7) BSS IF considering initiating PO diet Addendum: 12/24/19 at [address] Amended: Links added.
[2019-12-24] MEDS ORDERED: BACDS PO (13:09)
[2019-12-24 18:00] VITALS: BP 146/67
--- NOTE | 2019-12-24 18:47 | NUR ---
Patient in room [facility] 352. I have received report from NEERAJ Albert and had the opportunity to ask questions and assume patient care.
--- NOTE | 2019-12-24 19:02 | NUR ---
Problems reprioritized. Patient report given, questions answered & plan of care reviewed with Katia PICKARD.
--- NOTE | 2019-12-24 20:00 | NUR ---
VITAL AF 1.2 ADMINISTERING AT 30 ML/HR.
[2019-12-24] MEDS ORDERED: mag hydrox/Alum hydrox/simeth 30ml oral suspension PEG PRN (20:06)
[2019-12-24] MEDS ORDERED: magnesium hydroxide 30ml (MOM) UD suspension PEG PRN (20:07)
[2019-12-25] VITALS: BP 146/76
[2019-12-25] MEDS: traMADol 50MG tablet GT SCH ×2 (01:32→08:18)
[2019-12-25] MEDS: normal saline 1000ml 1,000 ML IV SCH ×2 (02:26→06:29)
--- NOTE | 2019-12-25 04:00 | NUR ---
Patient with no complaint of nausea/vomiting. Residual 30 mL. Tube feeding increased to 70 mL/hr, per order
--- NOTE | 2019-12-25 06:30 | NUR ---
Problems reprioritized. Patient report given, questions answered & plan of care reviewed with NEERAJ Albert.
--- NOTE | 2019-12-25 06:38 | NUR ---
Patient in room [facility] 352. I have received report from Katia PICKARD and had the opportunity to ask questions and assume patient care.
[2019-12-25 07:00] VITALS: BP 123/70
[2019-12-25] MEDS: levoTHYROXINE 88mcg tablet GT SCH (08:18)
[2019-12-25] MEDS: ascorbic acid 500mg tablet PEG SCH (08:19)
[2019-12-25] MEDS: cyanocobalamin 500mcg tablet PEG SCH (08:19)
[2019-12-25] MEDS: famotidine 10mg tablet PEG SCH (08:19)
[2019-12-25] MEDS: mirtazapine 15mg tablet PEG SCH (08:20)
[2019-12-25] MEDS: atorvastatin 20mg tablet GT SCH (08:21)
[2019-12-25] MEDS: gabapentin 300mg capsule GT SCH (08:21)
[2019-12-25] MEDS: polyethylene glycol 3350 17gm powd pack GT SCH (08:21)
[2019-12-25] MEDS: cyclobenzaprine 10mg tablet PEG SCH (08:22)
[2019-12-25] MEDS: ferrous sulfate 300mg/5ml UD oral liquid PEG SCH (08:23)
[2019-12-25] MEDS: pantoprazole 40 MG vial IV SCH (08:23)
[2019-12-25] MEDS: heparin, porcine 5000 units/ml vial SQ SCH (08:24)
[2019-12-25 12:21] VITALS: BP 130/64
--- NOTE | 2019-12-25 13:30 | NUR ---
patient discharge back to assisted. Patient assisted received faxed records of new medication and discharge information. Patient expressed verbal understanding of discharge. Patient IV taken out at discharge canula whole and intact upon discharge. Patient tube feeds stopped at this time. Patient left with all belongings and was transported out via his own wheelchair.
== END 2019-12-25 13:30 | disposition home or self-care (01) ==
LOC: ER 08:18 → ED HOLD 10:26 → INTOOBSV 10:26 → ED HOLD 10:29 → UNDOADMIN 10:29 → ED HOLD 15:09 → SUR 3N 15:09
PROVIDERS: ADMIT Family Medicine; ATTEND Family Medicine
DX: R10.9 Unspecified abdominal pain (principal); K56.7 Ileus, unspecified; I25.10 Atherosclerotic heart disease of native coronary artery without angina pectoris; I10 Essential (primary) hypertension; E78.5 Hyperlipidemia, unspecified; K21.9 Gastro-esophageal reflux disease without esophagitis; E03.9 Hypothyroidism, unspecified; G89.29 Other chronic pain; M54.9 Dorsalgia, unspecified; Z93.1 Gastrostomy status; Z95.5 Presence of coronary angioplasty implant and graft; Z79.899 Other long term (current) drug therapy; Z88.5 Allergy status to narcotic agent; Z88.6 Allergy status to analgesic agent; Z91.040 Latex allergy status; Z88.8 Allergy status to other drugs, medicaments and biological substances
CPT/HCPCS: 36415; 71045; 74018; 74176; 80053; 81001; 82948; 83690; 83735; 85025; 85610; 87077; 87081; 87088; 87186; 96372; 96374; 96375; 96376; 99285; C9113; G0378; J1644; J2270; J7030; J8597

== ENCOUNTER 2020-01-12 21:58 | Emergency (ER) | payer MEDICARE, MEDICAID ==
[~2020-01-12] VITALS: Ht 182.9 cm; Wt 68.2 kg
[~2020-01-12 21:58] MED LIST changes: -BACL GT
[2020-01-12] MEDS ORDERED: normal saline 1000ML IV soln IVB ONE (22:20)
[2020-01-12] MEDS ORDERED: ondansetron/PF 4mg/2ml inj IV ONE (22:20)
[2020-01-12] MEDS ORDERED: morphine 4 MG/ML inj SYRINge IV PRN (22:20)
--- NOTE | 2020-01-12 22:47 | NUR ---
SPOKE IN PERSON TO CAREGIVER, EMILEE. ADVISED HER OF OUR NO VISITOR POLICY. 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 ALSO SPOKE TO MD AND RN WHO BOTH STATE THEY DO NOT NEED THE CAREGIVER AT BEDSIDE AT THIS TIME. ADVISED CAREGIVER THAT WE CAN KEEP HER INFORMED OF THE PTS STATUS VIA TELEPHONE. ALSO LET HER KNOW THAT I CAN SEND THE RN OUT TO SPEAK TO HER SO SHE CAN PROVIDE ANY OTHER INFORMATION THAT SHE THINKS IS NECESSARY TO PROVIDE CARE.
[2020-01-12 22:59] LABS: BASOPHILS % (AUTO) 0.7 % (0-1); EOSINOPHILS # (AUTO) 0.3 X10'3 (0-0.9); HEMATOCRIT 24.1 % (42.0-52.0); LYMPHOCYTES % (AUTO) 15.9 % (21-51); MEAN CORPUSCULAR HEMOGLOBIN 31.3 PG (27.0-31.0); MEAN CORPUSCULAR HGB CONC 33.5 g/dL (33.0-36.5); MEAN CORPUSCULAR VOLUME 93.4 FL (78-98); MEAN PLATELET VOLUME 5.9 FL (7.4-10.4); MONOCYTES # (AUTO) 0.5 X10'3 (0-0.9); MONOCYTES % (AUTO) 8.1 % (2-12); NEUTROPHILS # (AUTO) 4.5 X10'3 (1.8-7.7); NEUTROPHILS % (AUTO) 71.3 % (42-75); PLATELET COUNT 131 X10'3 (140-440); RED BLOOD COUNT 2.57 X10'6 (4.70-6.10); RED CELL DISTRIBUTION WIDTH 14.8 % (11.5-14.5); WHITE BLOOD COUNT 6.3 X10'3 (4.5-11.0)
[2020-01-12 23:17] LABS: ALANINE AMINOTRANSFERASE 16 U/L (12-78); ALBUMIN 2.6 G/DL (3.4-5.0); ALBUMIN/GLOBULIN RATIO 0.5 (1.1-1.5); ALKALINE PHOSPHATASE 128 IU/L (46-116); ANION GAP 7 (8-16); ASPARTATE AMINO TRANSFERASE 20 U/L (10-37); BILIRUBIN,TOTAL 0.3 MG/DL (0.1-1.0); BLOOD UREA NITROGEN 35 MG/DL (7-18); CALCIUM 8.6 MG/DL (8.5-10.1); CHLORIDE 100 MMOL/L (99-107); GLUCOSE 93 MG/DL (70-104); LIPASE 78 U/L (73-393); POTASSIUM 4.6 MMOL/L (3.5-5.1); SODIUM 138 MMOL/L (135-145); TOTAL CARBON DIOXIDE 30.8 MMOL/L (24-32); TOTAL PROTEIN 8.1 G/DL (6.4-8.2); eGFR 75 ML/MIN
[2020-01-12 23:44] LABS: CLARITY,URINE SLIGHTLY CLOUDY (Clear); COLOR,URINE YELLOW (Yellow); GLUCOSE, URINE NEGATIVE (Neg); KETONES,URINE NEGATIVE (Neg); LEUKOCYTE ESTERASE ,URINE LARGE (Neg); NITRITES, URINE NEGATIVE (Neg); OCCULT BLOOD,URINE MODERATE (Neg); PROTEIN,URINE NEGATIVE (Neg); UROBILINOGEN,URINE 0.2 E.U/dL (0.2-1.0)
[2020-01-12 23:52] LABS: UA COLLECTION TYPE FOLEY CATH
[2020-01-12 23:53] LABS: BACTERIA,URINE 1+ /HPF (Neg); SQUAMOUS EPITHELIAL CELL,UR FEW /LPF (FEW); WBC,URINE 0-4 /HPF (0-4); YEAST MANY /HPF (NEGATIVE)
[2020-01-13 01:11] VITALS: BP 136/81
== END 2020-01-13 02:00 ==
LOC: ER 21:59
DX: R10.30 Lower abdominal pain, unspecified (principal); R11.2 Nausea with vomiting, unspecified; G35 Multiple sclerosis; I25.2 Old myocardial infarction; G89.29 Other chronic pain; Z98.890 Other specified postprocedural states; Z88.5 Allergy status to narcotic agent; Z88.8 Allergy status to other drugs, medicaments and biological substances; Z79.899 Other long term (current) drug therapy
CPT/HCPCS: 36415; 74176; 80053; 81001; 83690; 85025; 87077; 87088; 96361; 96374; 99284; J2405; J7030

== ENCOUNTER 2020-02-03 12:47 | Emergency (ER) | payer MEDICARE, MEDICAID ==
[~2020-02-03] VITALS: Ht 188 cm; Wt 80.0 kg
[2020-02-03 13:41] LABS: BASOPHILS % (AUTO) 0.4 % (0-1); EOSINOPHILS # (AUTO) 0.2 X10'3 (0-0.9); EOSINOPHILS % (AUTO) 2.4 % (0-6); HEMATOCRIT 28.8 % (42.0-52.0); HEMOGLOBIN 9.7 g/dl (14.0-17.9); LYMPHOCYTES # (AUTO) 1.1 X10'3 (1.1-4.8); LYMPHOCYTES % (AUTO) 10.2 % (21-51); MEAN CORPUSCULAR HEMOGLOBIN 31.6 PG (27.0-31.0); MEAN CORPUSCULAR HGB CONC 33.7 g/dL (33.0-36.5); MEAN CORPUSCULAR VOLUME 93.6 FL (78-98); MEAN PLATELET VOLUME 6.1 FL (7.4-10.4); MONOCYTES # (AUTO) 0.7 X10'3 (0-0.9); MONOCYTES % (AUTO) 6.6 % (2-12); NEUTROPHILS # (AUTO) 8.6 X10'3 (1.8-7.7); NEUTROPHILS % (AUTO) 80.4 % (42-75); PLATELET COUNT 160 X10'3 (140-440); RED BLOOD COUNT 3.07 X10'6 (4.70-6.10); RED CELL DISTRIBUTION WIDTH 15.5 % (11.5-14.5); WHITE BLOOD COUNT 10.6 X10'3 (4.5-11.0)
[2020-02-03 13:43] LABS: CLARITY,URINE SLIGHTLY CLOUDY (Clear); COLOR,URINE YELLOW (Yellow); GLUCOSE, URINE NEGATIVE (Neg); KETONES,URINE NEGATIVE (Neg); LEUKOCYTE ESTERASE ,URINE LARGE (Neg); NITRITES, URINE POSITIVE (Neg); OCCULT BLOOD,URINE LARGE (Neg); PROTEIN,URINE NEGATIVE (Neg); UROBILINOGEN,URINE 0.2 E.U/dL (0.2-1.0)
[2020-02-03 13:50] LABS: UA COLLECTION TYPE OTHER
[2020-02-03 13:52] LABS: BACTERIA,URINE FEW /HPF (Neg); MUCUS STRANDS FEW /LPF (Neg); RBC,URINE 20-50 /HPF (0-2); SQUAMOUS EPITHELIAL CELL,UR NONE SEEN /LPF (FEW)
[2020-02-03 13:56] LABS: ALANINE AMINOTRANSFERASE 18 U/L (12-78); ALBUMIN 3.1 G/DL (3.4-5.0); ALBUMIN/GLOBULIN RATIO 0.5 (1.1-1.5); ALKALINE PHOSPHATASE 137 IU/L (46-116); ANION GAP 6 (8-16); ASPARTATE AMINO TRANSFERASE 19 U/L (10-37); BILIRUBIN,TOTAL 0.2 MG/DL (0.1-1.0); BLOOD UREA NITROGEN 39 MG/DL (7-18); BUN/CREATININE RATIO 40.2 (5.4-32.0); CALCIUM 9.5 MG/DL (8.5-10.1); CHLORIDE 95 MMOL/L (99-107); CREATININE 0.97 MG/DL (0.60-1.10); GLUCOSE 90 MG/DL (70-104); LIPASE 71 U/L (73-393); POTASSIUM 4.5 MMOL/L (3.5-5.1); SODIUM 131 MMOL/L (135-145); TOTAL CARBON DIOXIDE 30.4 MMOL/L (24-32); TOTAL PROTEIN 9.1 G/DL (6.4-8.2); eGFR 77 ML/MIN
--- NOTE | 2020-02-03 14:40 | NUR ---
Pt denies any needs at this time. Let him know that Maryam, PA should be in shortly to see him.
--- NOTE | 2020-02-03 15:26 | NUR ---
Instilled 100mL of water into the pt's g tube to see how the pt does with the fluids per SHANE Francisco.
--- NOTE | 2020-02-03 16:31 | NUR ---
Pt tolerated fluids in g tube.
--- NOTE | 2020-02-03 17:22 | NUR ---
Pt sleeping. Respirations unlabored. NAD
[2020-02-03] MEDS ORDERED: CEPH250T PO (18:09)
--- NOTE | 2020-02-03 18:14 | NUR ---
Spoke with DERRICK Medina at the [facility]. She said they are just finishing report and then she will get someone here to get the pt. She thought it would be about 30 minutes.
[2020-02-03 18:47] VITALS: BP 113/59
== END 2020-02-03 20:24 | disposition home or self-care (01) ==
LOC: ER 12:47
DX: N39.0 Urinary tract infection, site not specified (principal); R11.2 Nausea with vomiting, unspecified; G35 Multiple sclerosis; I25.2 Old myocardial infarction; G89.29 Other chronic pain; Z98.890 Other specified postprocedural states; Z88.5 Allergy status to narcotic agent; Z91.041 Radiographic dye allergy status; Z88.8 Allergy status to other drugs, medicaments and biological substances; Z79.899 Other long term (current) drug therapy
CPT/HCPCS: 36415; 74176; 80053; 81001; 83690; 85025; 87077; 87088; 87186; 99285

== ENCOUNTER 2020-02-23 13:33 | Emergency (ER) | payer MEDICARE, MEDICAID ==
[~2020-02-23] VITALS: Ht 182.9 cm; Wt 77.3 kg
[2020-02-23 14:56] LABS: BASOPHILS % (AUTO) 0.5 % (0-1); EOSINOPHILS # (AUTO) 0.1 X10'3 (0-0.9); EOSINOPHILS % (AUTO) 3.1 % (0-6); HEMATOCRIT 26.9 % (42.0-52.0); LYMPHOCYTES % (AUTO) 24.5 % (21-51); MEAN CORPUSCULAR HEMOGLOBIN 31.7 PG (27.0-31.0); MEAN CORPUSCULAR HGB CONC 33.6 g/dL (33.0-36.5); MEAN CORPUSCULAR VOLUME 94.5 FL (78-98); MEAN PLATELET VOLUME 5.8 FL (7.4-10.4); MONOCYTES # (AUTO) 0.3 X10'3 (0-0.9); MONOCYTES % (AUTO) 8.4 % (2-12); NEUTROPHILS # (AUTO) 2.5 X10'3 (1.8-7.7); NEUTROPHILS % (AUTO) 63.5 % (42-75); PLATELET COUNT 133 X10'3 (140-440); RED BLOOD COUNT 2.85 X10'6 (4.70-6.10); RED CELL DISTRIBUTION WIDTH 16.2 % (11.5-14.5)
--- NOTE | 2020-02-23 15:10 | NUR ---
CHECKED JT FOR RESIDUAL RECEIVED 550CC OUT. CONTINUE TO VENT JT.
[2020-02-23 15:19] LABS: ALANINE AMINOTRANSFERASE 16 U/L (12-78); ALBUMIN 2.7 G/DL (3.4-5.0); ALBUMIN/GLOBULIN RATIO 0.5 (1.1-1.5); ALKALINE PHOSPHATASE 127 IU/L (46-116); ANION GAP 7 (8-16); ASPARTATE AMINO TRANSFERASE 19 U/L (10-37); BILIRUBIN,TOTAL 0.2 MG/DL (0.1-1.0); BLOOD UREA NITROGEN 31 MG/DL (7-18); BUN/CREATININE RATIO 37.3 (5.4-32.0); CALCIUM 8.7 MG/DL (8.5-10.1); CHLORIDE 95 MMOL/L (99-107); CREATININE 0.83 MG/DL (0.60-1.10); GLUCOSE 86 MG/DL (70-104); LIPASE 79 U/L (73-393); POTASSIUM 4.5 MMOL/L (3.5-5.1); SODIUM 131 MMOL/L (135-145); TOTAL CARBON DIOXIDE 28.6 MMOL/L (24-32); TOTAL PROTEIN 8.2 G/DL (6.4-8.2); eGFR > 90 ML/MIN
--- NOTE | 2020-02-23 15:30 | NUR ---
PT STATES, LUQ PAIN IS NOW 0/10. AND PT STATES, NAUSEA NOT TO BAD RIGHT NOW.
[2020-02-23 15:49] LABS: CLARITY,URINE CLOUDY (Clear); COLOR,URINE YELLOW (Yellow); GLUCOSE, URINE NEGATIVE (Neg); KETONES,URINE NEGATIVE (Neg); LEUKOCYTE ESTERASE ,URINE LARGE (Neg); NITRITES, URINE NEGATIVE (Neg); OCCULT BLOOD,URINE LARGE (Neg); PH,URINE 6.5 (4.8-8.0); PROTEIN,URINE 30 mg/dl (Neg); UROBILINOGEN,URINE 0.2 E.U/dL (0.2-1.0)
--- NOTE | 2020-02-23 15:57 | NUR ---
SPOKE WITH SHONA MEDINA,RN CAREGIVER. STATES, PT HAD A PASTY STOOL YESTERDAY AND THAT USUALLY MEANS THE BEGINNING OF A SMALL BOWEL OBST. WHICH HE IS PRON TO. PT RECEIVES JEVITY 1.2 70CC/HR FOR 24HRS. ALSO GETS MIRALAX AND MG CITRATE FOR BOWEL CARE.
[2020-02-23 16:00] LABS: UA COLLECTION TYPE FOLEY CATH
[2020-02-23 16:06] LABS: SQUAMOUS EPITHELIAL CELL,UR FEW /LPF (FEW)
[2020-02-23 16:07] LABS: BACTERIA,URINE 1+ /HPF (Neg); RBC,URINE 20-50 /HPF (0-2); WBC,URINE TNTC /HPF (0-4)
[2020-02-23 16:08] LABS: WBC CLUMPS,URINE FEW /HPF (NEGATIVE)
[2020-02-23] MEDS ORDERED: CefTRIAXone 2gm/D5W 50ml 50 ML IV ONE (16:50)
[2020-02-23 17:06] VITALS: BP 117/69
[2020-02-23] MEDS ORDERED: KEF125L PO (17:54)
[2020-02-23] MEDS ORDERED: MAGN296S68 GT (23:06)
[2020-02-23] MEDS ORDERED: TRIA10PO3 MC (23:06)
[2020-02-23] MEDS ORDERED: BISA10SU60 RC (23:06)
[2020-02-23] MEDS ORDERED: PANT20TA3 GT (23:06)
[2020-02-23] MEDS ORDERED: LOPE-190 GT (23:06)
[2020-02-23] MEDS ORDERED: DEXT15DR28 EACHEYE (23:06)
[2020-02-23] MEDS ORDERED: ACET325C6 GT ×2 (23:06)
[2020-02-23] MEDS ORDERED: MULT9LIQ7 PO (23:06)
[2020-02-23] MEDS ORDERED: POLY17PO10 GT (23:06)
[2020-02-23] MEDS ORDERED: NYSPWD TP (23:06)
[2020-02-23] MEDS ORDERED: BENZ68FO (23:06)
[2020-02-23] MEDS ORDERED: ONDA4TAB12 GT (23:06)
[2020-02-23] MEDS ORDERED: CYCL-1 GT (23:06)
[2020-02-23] MEDS ORDERED: MAGN400O6 GT ×2 (23:06)
[2020-02-23] MEDS ORDERED: CYAN250010 GT (23:06)
[2020-02-23] MEDS ORDERED: BACI1PAC7 TOP (23:06)
[2020-02-23] MEDS ORDERED: NA P230E RC (23:06)
[2020-02-23] MEDS ORDERED: MYCOL15CR TOP (23:06)
[2020-02-23] MEDS ORDERED: MAG355OR43 (23:06)
[2020-02-24] MEDS ORDERED: NEOM1AMP BLADIN (13:02)
[2020-02-24] MEDS ORDERED: KEN0.1O TP (13:24)
[2020-02-24] MEDS ORDERED: [UNRECOGNIZED DRUG - CODE] NG (13:24)
[2020-02-24] MEDS ORDERED: FERR15DR PO (13:24)
[2020-02-24] MEDS ORDERED: NYST30CR2 TP (13:24)
== END 2020-02-23 19:20 | disposition home or self-care (01) ==
LOC: ER 13:33
DX: N39.0 Urinary tract infection, site not specified (principal); R11.2 Nausea with vomiting, unspecified; R07.89 Other chest pain; G35 Multiple sclerosis; I25.2 Old myocardial infarction; G89.29 Other chronic pain; Z98.890 Other specified postprocedural states; Z88.5 Allergy status to narcotic agent; Z88.8 Allergy status to other drugs, medicaments and biological substances; Z79.899 Other long term (current) drug therapy
CPT/HCPCS: 36415; 80053; 81001; 83690; 85025; 87077; 87088; 87186; 93005; 96365; 99284; J0696

== ENCOUNTER → 2020-03-06 | Emergency (ER) | payer MEDICARE, MEDICAID ==
[~2020-03-06] VITALS: Ht 185.4 cm; Wt 77.3 kg
[~2020-03-06] MED LIST changes: +ACET325C6 GT; +ALBU8HFA PO; +AMOX-580 GT; +BACI1PAC7 TOP; +BISA10SU60 RC; +CYCL-1 GT; -CYCL-1 PO; +DEXT15DR28 EACHEYE; +FERR15DR GT; -FERR15DR PO; +KEN0.1O TP; +LACT1CAP26 GT; +LEVO500T89 GT; +LOPE-190 GT; +MAGN296S68 GT; +MAGN400O6 GT; +NA P230E RC; +NEOM1AMP BLADIN; -NEOMYCIN; +NYSPWD TP; +NYST30CR2 TP; -OMEP40CA13 PEG; +ONDA4TAB12 GT; +PANT20TA18 GT; +POLY17PO10 GT; -POLY17PO10 PO; -POLYMYXIN B; +[UNRECOGNIZED DRUG - CODE] NG; +diatr meglu/diatrizoate 30ml oral sol.-(3 dose) bottle PO ONE; +diatrizoate meglumine 300mg/ml (30%) 300ml UR ONE; +diatrozoate meglu/diatrozoate sod (37% iodine) 120ML oral solution PO ONE
[2020-03-06 17:19] VITALS: BP 104/56
== END | disposition home or self-care (01) ==
LOC: ER 17:05
DX: Z46.59 Encounter for fitting and adjustment of other gastrointestinal appliance and device (principal); I25.2 Old myocardial infarction; Z87.440 Personal history of urinary (tract) infections; G89.29 Other chronic pain; Z98.890 Other specified postprocedural states; Z88.5 Allergy status to narcotic agent; Z88.8 Allergy status to other drugs, medicaments and biological substances; Z91.040 Latex allergy status; Z79.2 Long term (current) use of antibiotics; Z79.899 Other long term (current) drug therapy
CPT/HCPCS: 74018; 99284; Q9958; 43762

== ENCOUNTER 2020-03-11 09:09 | Emergency (ER) | payer MEDICARE, MEDICAID ==
[~2020-03-11] VITALS: Ht 182.9 cm; Wt 54.5 kg
[~2020-03-11 09:09] MED LIST changes: -ALBU8HFA PO; -diatr meglu/diatrizoate 30ml oral sol.-(3 dose) bottle PO ONE; -diatrizoate meglumine 300mg/ml (30%) 300ml UR ONE; -diatrozoate meglu/diatrozoate sod (37% iodine) 120ML oral solution PO ONE
[2020-03-11 09:48] LABS: EOSINOPHILS # (AUTO) 0.2 X10'3 (0-0.9); EOSINOPHILS % (AUTO) 5.2 % (0-6); HEMATOCRIT 29.3 % (42.0-52.0); HEMOGLOBIN 9.9 g/dl (14.0-17.9); LYMPHOCYTES # (AUTO) 1.2 X10'3 (1.1-4.8); LYMPHOCYTES % (AUTO) 27.2 % (21-51); MEAN CORPUSCULAR HEMOGLOBIN 31.3 PG (27.0-31.0); MEAN CORPUSCULAR HGB CONC 33.8 g/dL (33.0-36.5); MEAN CORPUSCULAR VOLUME 92.3 FL (78-98); MEAN PLATELET VOLUME 6.1 FL (7.4-10.4); MONOCYTES # (AUTO) 0.4 X10'3 (0-0.9); MONOCYTES % (AUTO) 9.1 % (2-12); NEUTROPHILS # (AUTO) 2.6 X10'3 (1.8-7.7); NEUTROPHILS % (AUTO) 57.5 % (42-75); PLATELET COUNT 120 X10'3 (140-440); RED BLOOD COUNT 3.17 X10'6 (4.70-6.10); RED CELL DISTRIBUTION WIDTH 17.2 % (11.5-14.5); WHITE BLOOD COUNT 4.5 X10'3 (4.5-11.0)
[2020-03-11 09:59] LABS: PARTIAL THROMBOPLASTIN TIME 32 SECONDS (22-32)
[2020-03-11 10:02] LABS: ALANINE AMINOTRANSFERASE 18 U/L (12-78); ALBUMIN 2.9 G/DL (3.4-5.0); ALBUMIN/GLOBULIN RATIO 0.5 (1.1-1.5); ALKALINE PHOSPHATASE 153 IU/L (46-116); ANION GAP 1 (8-16); ASPARTATE AMINO TRANSFERASE 18 U/L (10-37); BILIRUBIN,TOTAL 0.2 MG/DL (0.1-1.0); BLOOD UREA NITROGEN 36 MG/DL (7-18); CALCIUM 8.8 MG/DL (8.5-10.1); CHLORIDE 98 MMOL/L (99-107); GLUCOSE 92 MG/DL (70-104); POTASSIUM 4.3 MMOL/L (3.5-5.1); SODIUM 133 MMOL/L (135-145); TOTAL CARBON DIOXIDE 33.9 MMOL/L (24-32); TOTAL PROTEIN 8.6 G/DL (6.4-8.2); eGFR 75 ML/MIN
--- NOTE | 2020-03-11 10:58 | NUR ---
Patient is resting comfortably in bed with no requests at this time. 300mL urine drained from catheter.
[2020-03-11] MEDS ORDERED: iohexol 350MG/ML 100ml bottle IV ONE (11:27)
--- NOTE | 2020-03-11 11:39 | NUR ---
breaking primary RN. Pt is back from CT
[2020-03-11] MEDS ORDERED: ALBU8HFA PO (12:11)
[2020-03-11 12:50] VITALS: BP 123/61
== END 2020-03-11 13:04 | disposition home or self-care (01) ==
LOC: ER 09:10
DX: J43.9 Emphysema, unspecified (principal); G35 Multiple sclerosis; I25.2 Old myocardial infarction; G89.29 Other chronic pain; Z98.890 Other specified postprocedural states; Z88.5 Allergy status to narcotic agent; Z88.8 Allergy status to other drugs, medicaments and biological substances; Z79.899 Other long term (current) drug therapy
CPT/HCPCS: 36415; 71045; 71275; 80053; 83880; 84484; 85025; 85610; 85730; 93005; 99285; Q9967

== ENCOUNTER 2020-05-01 10:05 | Inpatient (IN) | payer MEDICARE, MEDICAID ==
[~2020-05-01] VITALS: Ht 185.4 cm; Wt 81.4 kg
[~2020-05-01 10:05] MED LIST changes: -ASCO500C15 GT; +ASCO500C18 GT; +diatr meglu/diatrizoate 30ml oral sol.-(3 dose) bottle ONE
[2020-05-01] MEDS ORDERED: piperacillin/tazo 3.375gm/50ml 50 ML IV ONE (11:05)
[2020-05-01] MEDS ORDERED: normal saline 1000ML IV soln IVB ONE (11:15)
--- NOTE | 2020-05-01 11:24 | NUR ---
PICC RN at bedside for IV placement.
[2020-05-01 11:50] LABS: BASOPHILS % (AUTO) 0.2 % (0-1); EOSINOPHILS # (AUTO) 0.1 X10'3 (0-0.9); EOSINOPHILS % (AUTO) 1.8 % (0-6); HEMATOCRIT 25.5 % (42.0-52.0); HEMOGLOBIN 8.6 g/dl (14.0-17.9); LYMPHOCYTES # (AUTO) 0.9 X10'3 (1.1-4.8); LYMPHOCYTES % (AUTO) 12.5 % (21-51); MEAN CORPUSCULAR HEMOGLOBIN 31.5 PG (27.0-31.0); MEAN CORPUSCULAR HGB CONC 33.8 g/dL (33.0-36.5); MEAN CORPUSCULAR VOLUME 93.4 FL (78-98); MEAN PLATELET VOLUME 5.8 FL (7.4-10.4); MONOCYTES # (AUTO) 0.5 X10'3 (0-0.9); MONOCYTES % (AUTO) 6.5 % (2-12); NEUTROPHILS # (AUTO) 5.9 X10'3 (1.8-7.7); PLATELET COUNT 99 X10'3 (140-440); RED BLOOD COUNT 2.73 X10'6 (4.70-6.10); RED CELL DISTRIBUTION WIDTH 16.4 % (11.5-14.5); WHITE BLOOD COUNT 7.4 X10'3 (4.5-11.0)
[2020-05-01 12:23] LABS: ALANINE AMINOTRANSFERASE 115 U/L (12-78); ALBUMIN 2.7 G/DL (3.4-5.0); ALBUMIN/GLOBULIN RATIO 0.5 (1.1-1.5); ALKALINE PHOSPHATASE 925 IU/L (46-116); ANION GAP 5 (8-16); ASPARTATE AMINO TRANSFERASE 48 U/L (10-37); BILIRUBIN,TOTAL 0.5 MG/DL (0.1-1.0); BLOOD UREA NITROGEN 26 MG/DL (7-18); BUN/CREATININE RATIO 27.1 (5.4-32.0); CHLORIDE 97 MMOL/L (99-107); CREATININE 0.96 MG/DL (0.60-1.10); GLUCOSE 86 MG/DL (70-104); LIPASE 52 U/L (73-393); POTASSIUM 5.2 MMOL/L (3.5-5.1); SODIUM 132 MMOL/L (135-145); TOTAL CARBON DIOXIDE 30.4 MMOL/L (24-32); TOTAL PROTEIN 8.5 G/DL (6.4-8.2); eGFR 78 ML/MIN
[2020-05-01 13:26] LABS: CLARITY,URINE SLIGHTLY CLOUDY (Clear); COLOR,URINE STRAW (Yellow); GLUCOSE, URINE NEGATIVE (Neg); KETONES,URINE NEGATIVE (Neg); LEUKOCYTE ESTERASE ,URINE LARGE (Neg); NITRITES, URINE NEGATIVE (Neg); OCCULT BLOOD,URINE LARGE (Neg); PROTEIN,URINE NEGATIVE (Neg); UROBILINOGEN,URINE 0.2 E.U/dL (0.2-1.0)
[2020-05-01 13:29] LABS: UA COLLECTION TYPE FOLEY CATH
[2020-05-01 13:32] LABS: MUCUS STRANDS NONE SEEN /LPF (Neg); SQUAMOUS EPITHELIAL CELL,UR FEW /LPF (FEW)
[2020-05-01 13:33] LABS: YEAST MODERATE /HPF (NEGATIVE)
[2020-05-01 13:34] LABS: WBC,URINE 50-100 /HPF (0-4)
[2020-05-01 13:35] LABS: BACTERIA,URINE 4+ /HPF (Neg); RBC,URINE 50-100 /HPF (0-2)
[2020-05-01] MEDS ORDERED: [UNRECOGNIZED DRUG - CODE] GT (13:48)
[2020-05-01] MEDS ORDERED: METH1TAB32 GT (13:48)
[2020-05-01] MEDS ORDERED: ARGI500T PO (13:48)
[2020-05-01] MEDS ORDERED: METO5SOL GT (13:48)
[2020-05-01] MEDS ORDERED: FERR15DR PO (13:50)
[2020-05-01] MEDS ORDERED: potassium CL 10mEq/100ml bag 100 ML IV PRN (14:30)
[2020-05-01] MEDS ORDERED: potassium Cl 20 mEq SR tablet PO PRN ×2 (14:30)
[2020-05-01] MEDS ORDERED: acetaminophen 650mg rectal suppository RC PRN (14:30)
[2020-05-01] MEDS ORDERED: magnesium 2GM in 50ml NS 50 ML IV PRN (14:30)
[2020-05-01] MEDS ORDERED: ondansetron/PF 4mg/2ml inj IV PRN (14:30)
[2020-05-01] MEDS ORDERED: magnesium Cl slow-release 64mg tablet PO PRN (14:30)
[2020-05-01] MEDS ORDERED: magnesium 4gm in 100ml NS 100 ML IV PRN (14:30)
[2020-05-01] MEDS ORDERED: sincalide inj 1.6 MCG in normal saline 50ml IV soln 50 ML IV PRN (14:35)
[2020-05-01] MEDS: normal saline 1000ml 1,000 ML IV SCH (14:50)
--- NOTE | 2020-05-01 14:51 | NUR ---
RN supervisor cloth winding for his custodial, Keily Welch [phone] Any questions or changes to be directed to her. She can contact family if needed.
--- NOTE | 2020-05-01 16:00 | NUR ---
Sent Page to Admitting MD for Pt's daily meds. Pt has not had his meds today.
--- NOTE | 2020-05-01 17:10 | NUR ---
RECEIVED REPORT FROM MARCELL PICKARD
--- NOTE | 2020-05-01 17:43 | NUR ---
RECEIVED PATIENT, TWO RN SKIN CHECK DONE. PATIENT ALERT ASKED FOR TV, FC IN PLACE, GTUBE SITE CDI. LUNGS CLEAR, CAP REFILL GOOD AND WEARING DROP FOOT BOOTS.
--- NOTE | 2020-05-01 18:04 | NUR ---
PAGER ID: [phone] MESSAGE: [id number] CALEB ACUÑA ARE YOU GOING TO ADDRESS THE MED REC? SHAHID [id number]
--- NOTE | 2020-05-01 18:22 | NUR ---
Problems reprioritized. Patient report given, questions answered & plan of care reviewed with RENETTA PICKARD.
[2020-05-01] MEDS: K and/or MAG REPLACEMENT MC SCH (19:30)
[2020-05-02] MEDS: normal saline 1000ml 1,000 ML IV SCH ×3 (00:21→21:06)
[2020-05-02 06:00] VITALS: BP 164/79
--- NOTE | 2020-05-02 06:35 | NUR ---
Report given to Sho PICKARD.
[2020-05-02 07:57] LABS: BASOPHILS % (AUTO) 0.4 % (0-1); EOSINOPHILS # (AUTO) 0.1 X10'3 (0-0.9); EOSINOPHILS % (AUTO) 1.3 % (0-6); HEMOGLOBIN 8.5 g/dl (14.0-17.9); LYMPHOCYTES # (AUTO) 0.9 X10'3 (1.1-4.8); LYMPHOCYTES % (AUTO) 13.8 % (21-51); MEAN CORPUSCULAR HEMOGLOBIN 30.9 PG (27.0-31.0); MEAN CORPUSCULAR HGB CONC 32.8 g/dL (33.0-36.5); MEAN CORPUSCULAR VOLUME 94.2 FL (78-98); MEAN PLATELET VOLUME 6.5 FL (7.4-10.4); MONOCYTES # (AUTO) 0.5 X10'3 (0-0.9); MONOCYTES % (AUTO) 6.8 % (2-12); NEUTROPHILS # (AUTO) 5.3 X10'3 (1.8-7.7); NEUTROPHILS % (AUTO) 77.7 % (42-75); PLATELET COUNT 115 X10'3 (140-440); RED BLOOD COUNT 2.76 X10'6 (4.70-6.10); RED CELL DISTRIBUTION WIDTH 16.5 % (11.5-14.5); WHITE BLOOD COUNT 6.8 X10'3 (4.5-11.0)
[2020-05-02] MEDS: K and/or MAG REPLACEMENT MC SCH ×2 (08:00→20:00)
[2020-05-02 08:10] LABS: ALBUMIN 2.4 G/DL (3.4-5.0); ANION GAP 13 (8-16); BLOOD UREA NITROGEN 23 MG/DL (7-18); BUN/CREATININE RATIO 25.3 (5.4-32.0); CALCIUM 8.9 MG/DL (8.5-10.1); CHLORIDE 106 MMOL/L (99-107); CREATININE 0.91 MG/DL (0.60-1.10); GLUCOSE 75 MG/DL (70-104); MAGNESIUM 2.6 MG/DL (1.5-2.4); POTASSIUM 4.5 MMOL/L (3.5-5.1); SODIUM 142 MMOL/L (135-145); TOTAL CARBON DIOXIDE 23.1 MMOL/L (24-32); eGFR 83 ML/MIN
--- NOTE | 2020-05-02 08:36 | NUR ---
DR. KING IN TO SEE PATIENT, EGD PENDING CT REPORT. CALLED OVER TO [facility] TO GET RESULTS FROM YESTERDAYS CT AND CTA REPORT. [facility] TO PUSH OVER REPORT ALONG WITH FAXED OVER.
--- NOTE | 2020-05-02 08:42 | NUR ---
RECEIVED RADIOLOGY REPORT OF CTA AND PELVIS WITH CONTRAST FROM [facility] VIA FAX.
[2020-05-02 10:00] VITALS: BP 154/83
--- NOTE | 2020-05-02 13:17 | NUR ---
GI LAB CALLED AND EGD, IS CONTRAINDICATED. NO EGD TODAY.
--- NOTE | 2020-05-02 13:19 | NUR ---
PAGER ID: [phone] MESSAGE: MESSAGE: [id number] CALEB ACUÑA ARE YOU GOING TO ADDRESS THE MED REC? SHAHID [id number]
[2020-05-02] MEDS: pantoprazole 40 MG vial IV SCH (14:48)
--- NOTE | 2020-05-02 16:33 | NUR ---
PAGED DR. MAGAÑA REGARDING TESTS HE WANTED. HIDA SCAN AND EGD ARE CONTRAINDICATED. WILL SEE PATIENT THIS EVENING.
[2020-05-02] MEDS: metoclopramide 5 mg/ml inj IV SCH ×2 (17:23→21:06)
[2020-05-02] MEDS: morphine 2 MG/ML inj. syringe IV PRN ×2 (17:32→23:53)
[2020-05-02 18:00] VITALS: BP 168/83
--- NOTE | 2020-05-02 18:52 | NUR ---
Patient in room ORTHO 4010. I have received report from Sho PICKARD and had the opportunity to ask questions and assume patient care.
[2020-05-02 22:00] VITALS: BP 157/76
[2020-05-03] MEDS: morphine 2 MG/ML inj. syringe IV PRN (05:20)
[2020-05-03 06:00] VITALS: BP 153/71
[2020-05-03] MEDS: normal saline 1000ml 1,000 ML IV SCH ×2 (06:30→20:08)
--- NOTE | 2020-05-03 06:36 | NUR ---
Problems reprioritized. Patient report given, questions answered & plan of care reviewed with Kia PICKARD.
--- NOTE | 2020-05-03 06:40 | NUR ---
Patient in room ORTHO 4010. I have received report from Kia PICKARD and had the opportunity to ask questions and assume patient care.
[2020-05-03 07:41] LABS: BASOPHILS % (AUTO) 0.7 % (0-1); EOSINOPHILS % (AUTO) 0.6 % (0-6); HEMATOCRIT 25.3 % (42.0-52.0); HEMOGLOBIN 8.4 g/dl (14.0-17.9); LYMPHOCYTES % (AUTO) 14.5 % (21-51); MEAN CORPUSCULAR HEMOGLOBIN 31.6 PG (27.0-31.0); MEAN CORPUSCULAR HGB CONC 33.4 g/dL (33.0-36.5); MEAN CORPUSCULAR VOLUME 94.7 FL (78-98); MEAN PLATELET VOLUME 5.8 FL (7.4-10.4); MONOCYTES # (AUTO) 0.5 X10'3 (0-0.9); MONOCYTES % (AUTO) 7.7 % (2-12); NEUTROPHILS # (AUTO) 5.1 X10'3 (1.8-7.7); NEUTROPHILS % (AUTO) 76.5 % (42-75); PLATELET COUNT 143 X10'3 (140-440); RED BLOOD COUNT 2.67 X10'6 (4.70-6.10); RED CELL DISTRIBUTION WIDTH 16.2 % (11.5-14.5); WHITE BLOOD COUNT 6.6 X10'3 (4.5-11.0)
[2020-05-03 07:56] LABS: ALBUMIN 2.4 G/DL (3.4-5.0); ANION GAP 15 (8-16); BLOOD UREA NITROGEN 18 MG/DL (7-18); BUN/CREATININE RATIO 21.7 (5.4-32.0); CALCIUM 9.2 MG/DL (8.5-10.1); CHLORIDE 110 MMOL/L (99-107); CREATININE 0.83 MG/DL (0.60-1.10); GLUCOSE 80 MG/DL (70-104); MAGNESIUM 2.2 MG/DL (1.5-2.4); POTASSIUM 3.6 MMOL/L (3.5-5.1); SODIUM 146 MMOL/L (135-145); TOTAL CARBON DIOXIDE 20.8 MMOL/L (24-32); eGFR > 90 ML/MIN
[2020-05-03] MEDS: K and/or MAG REPLACEMENT MC SCH ×2 (08:00→20:00)
[2020-05-03] MEDS ORDERED: sincalide inj 1.6 MCG in normal saline 50ml IV soln 50 ML IV ONE (08:00)
[2020-05-03 09:51] VITALS: BP 172/86
--- NOTE | 2020-05-03 10:09 | NUR ---
PATIENT PICKED UP FOR UPPER GI
--- NOTE | 2020-05-03 10:09 | NUR ---
4010a ARIANNE ELLIS- DR. ROCHA WANTS UPPER GI DONE, HOLD HIDA. ALEXANDER [id number]
--- NOTE | 2020-05-03 12:00 | NUR ---
Problems reprioritized. Patient report given, questions answered & plan of care reviewed with Kia PICKARD.
--- NOTE | 2020-05-03 12:05 | NUR ---
Student documentation: I have reviewed and agree with all interventions, assessments performed and documented by Darren Jaime.
--- NOTE | 2020-05-03 12:23 | NUR ---
Patient back from [facility]uc [facility]
[2020-05-03] MEDS: levoTHYROXINE sod inj. 100mcg/5 ml vial IV SCH (12:50)
[2020-05-03] MEDS: pantoprazole 40 MG vial IV SCH (12:54)
[2020-05-03] MEDS: metoclopramide 5 mg/ml inj IV SCH ×3 (12:56→20:08)
[2020-05-03] MEDS: diatr meglu/diatrizoate 30ml oral sol.-(3 dose) bottle PO SCH ×2 (13:36→16:16)
[2020-05-03 18:00] VITALS: BP 145/87
--- NOTE | 2020-05-03 18:19 | NUR ---
Problems reprioritized. Patient report given, questions answered & plan of care reviewed with Shea PICKARD. Addendum: 05/03/20 at 1819 by Kia Clark RN Problems reprioritized. Patient report given, questions answered & plan of care reviewed with Taniya PICKARD.
--- NOTE | 2020-05-03 18:21 | NUR ---
Spoke with safety tech, radiologist had critical findings to report to MD Ferrera. Gave safety tech MD Gonzalez pager and telephone number.
--- NOTE | 2020-05-03 18:26 | NUR ---
Patient in room ORTHO 4010. I have received report from Kia PICKARD and had the opportunity to ask questions and assume patient care.
[2020-05-03 22:18] VITALS: BP 161/89
[2020-05-04] MEDS: normal saline 1000ml 1,000 ML IV SCH ×3 (02:30→22:30)
[2020-05-04] MEDS: morphine 2 MG/ML inj. syringe IV PRN (03:36)
[2020-05-04 06:00] VITALS: BP 164/86
--- NOTE | 2020-05-04 06:27 | NUR ---
Problems reprioritized. Patient report given, questions answered & plan of care reviewed with Kia PICKARD.
[2020-05-04 06:47] LABS: BASOPHILS % (AUTO) 0.3 % (0-1); EOSINOPHILS % (AUTO) 0.8 % (0-6); HEMATOCRIT 25.2 % (42.0-52.0); HEMOGLOBIN 8.6 g/dl (14.0-17.9); LYMPHOCYTES # (AUTO) 1.3 X10'3 (1.1-4.8); LYMPHOCYTES % (AUTO) 21.8 % (21-51); MEAN CORPUSCULAR HEMOGLOBIN 31.7 PG (27.0-31.0); MEAN CORPUSCULAR HGB CONC 33.9 g/dL (33.0-36.5); MEAN CORPUSCULAR VOLUME 93.4 FL (78-98); MEAN PLATELET VOLUME 5.7 FL (7.4-10.4); MONOCYTES # (AUTO) 0.5 X10'3 (0-0.9); NEUTROPHILS % (AUTO) 68.1 % (42-75); PLATELET COUNT 171 X10'3 (140-440); RED CELL DISTRIBUTION WIDTH 15.8 % (11.5-14.5); WHITE BLOOD COUNT 5.9 X10'3 (4.5-11.0)
[2020-05-04 06:52] LABS: ALBUMIN 2.4 G/DL (3.4-5.0); ANION GAP 13 (8-16); BLOOD UREA NITROGEN 16 MG/DL (7-18); CALCIUM 9.1 MG/DL (8.5-10.1); CHLORIDE 114 MMOL/L (99-107); CREATININE 0.84 MG/DL (0.60-1.10); GLUCOSE 109 MG/DL (70-104); MAGNESIUM 2.1 MG/DL (1.5-2.4); POTASSIUM 3.2 MMOL/L (3.5-5.1); SODIUM 150 MMOL/L (135-145); TOTAL CARBON DIOXIDE 22.9 MMOL/L (24-32); eGFR > 90 ML/MIN
[2020-05-04] MEDS: K and/or MAG REPLACEMENT MC SCH ×2 (08:00→20:00)
[2020-05-04] MEDS: pantoprazole 40 MG vial IV SCH (08:11)
[2020-05-04] MEDS: metoclopramide 5 mg/ml inj IV SCH ×4 (08:11→21:04)
[2020-05-04] MEDS: levoTHYROXINE sod inj. 100mcg/5 ml vial IV SCH (08:11)
[2020-05-04] MEDS: potassium CL 10mEq/100ml bag 100 ML IV PRN ×4 (08:12→13:26)
[2020-05-04 10:00] VITALS: BP 169/89
[2020-05-04 11:48] LABS: ALANINE AMINOTRANSFERASE 77 U/L (12-78); ALBUMIN/GLOBULIN RATIO 0.4 (1.1-1.5); ASPARTATE AMINO TRANSFERASE 37 U/L (10-37); BILIRUBIN,DIRECT 0.2 MG/DL (0-0.3); BILIRUBIN,TOTAL 0.5 MG/DL (0.1-1.0)
[2020-05-04 11:49] LABS: ALKALINE PHOSPHATASE 1076 IU/L (46-116)
[2020-05-04] MEDS: dextrose 5%-water 1,000 ML IV SCH ×2 (12:10→21:28)
--- NOTE | 2020-05-04 15:46 | NUR ---
Tube feeding consult. Per surgeon rate at 10 ml/hr. Sodium elevated 150, MD aware, receiving both IV dextrose and IV sodium chloride. Per MD progress note pt evaluated by surgeon, HIDA scan, and upper GI follow through, revealed significant gastroesophageal reflux, no evidence of gastric outlet obstruction, showed free filling of small bowel out of stomach. Per surgeon note pt with possible pneumoperitoneum. Recommend: 1. per surgeon tube feeding at 10 ml/hr. Recommend osmolite. 2. consider water flush when tube feeding advanced to meet hydration needs. 3. Prealbumin q thursday and , daily weights 4. If OK to advance tube feedings pt would benefit from advancement as tolerated to continuous Osmolite 1.2 with goal rate of 70 mL/hr to provide: 1680 mL total volume/day, 2016 kcal, 93 g protein, and 1378 mL water; advance by 20 mL Q8H as tolerated to goal rate. 5. When TF advanced past trickle rate recommend additional 200 ml water flush to meet hydration needs in view of elevated sodium. Addendum: 05/04/20 at [address] Amended: Links added.
--- NOTE | 2020-05-04 17:47 | NUR ---
PAGER ID: [phone] MESSAGE: [id number] Huseyin Ortezaine- potassium protocol fell off, can i reorder? K went up to 3.3. Kia [phone]
[2020-05-04 18:00] VITALS: BP 166/88
--- NOTE | 2020-05-04 18:35 | NUR ---
Problems reprioritized. Patient report given, questions answered & plan of care reviewed with Taniya PICKARD.
--- NOTE | 2020-05-04 18:38 | NUR ---
Patient in room ORTHO 4010. I have received report from Kia PICKARD and had the opportunity to ask questions and assume patient care.
[2020-05-04 22:00] VITALS: BP 156/87
[2020-05-05] MEDS: morphine 2 MG/ML inj. syringe IV PRN (01:22)
[2020-05-05 06:00] VITALS: BP 140/84
[2020-05-05 06:34] LABS: BASOPHILS % (AUTO) 0.6 % (0-1); EOSINOPHILS # (AUTO) 0.1 X10'3 (0-0.9); EOSINOPHILS % (AUTO) 2.5 % (0-6); HEMATOCRIT 25.4 % (42.0-52.0); HEMOGLOBIN 8.8 g/dl (14.0-17.9); LYMPHOCYTES # (AUTO) 1.5 X10'3 (1.1-4.8); LYMPHOCYTES % (AUTO) 25.6 % (21-51); MEAN CORPUSCULAR HEMOGLOBIN 31.9 PG (27.0-31.0); MEAN CORPUSCULAR HGB CONC 34.6 g/dL (33.0-36.5); MEAN CORPUSCULAR VOLUME 92.3 FL (78-98); MEAN PLATELET VOLUME 5.4 FL (7.4-10.4); MONOCYTES # (AUTO) 0.5 X10'3 (0-0.9); MONOCYTES % (AUTO) 8.2 % (2-12); NEUTROPHILS # (AUTO) 3.7 X10'3 (1.8-7.7); NEUTROPHILS % (AUTO) 63.1 % (42-75); PLATELET COUNT 166 X10'3 (140-440); RED BLOOD COUNT 2.76 X10'6 (4.70-6.10); RED CELL DISTRIBUTION WIDTH 15.9 % (11.5-14.5); WHITE BLOOD COUNT 5.8 X10'3 (4.5-11.0)
[2020-05-05] MEDS: dextrose 5%-water 1,000 ML IV SCH (06:35)
--- NOTE | 2020-05-05 06:35 | NUR ---
Problems reprioritized. Patient report given, questions answered & plan of care reviewed with Kia PICKARD.
[2020-05-05 06:41] LABS: ALBUMIN 2.3 G/DL (3.4-5.0); ANION GAP 11 (8-16); BLOOD UREA NITROGEN 14 MG/DL (7-18); BUN/CREATININE RATIO 15.9 (5.4-32.0); CALCIUM 8.6 MG/DL (8.5-10.1); CHLORIDE 105 MMOL/L (99-107); CREATININE 0.88 MG/DL (0.60-1.10); GLUCOSE 141 MG/DL (70-104); MAGNESIUM 1.7 MG/DL (1.5-2.4); SODIUM 140 MMOL/L (135-145); TOTAL CARBON DIOXIDE 24.2 MMOL/L (24-32); eGFR 86 ML/MIN
--- NOTE | 2020-05-05 07:13 | NUR ---
PAGER ID: [phone] MESSAGE: [id number] Huseyin Osullivan- Critical lab k 3.0, can I please get replacement protocol? Kia [phone]
[2020-05-05] MEDS ORDERED: magnesium 4gm in 100ml NS 100 ML IV PRN (07:15)
[2020-05-05] MEDS ORDERED: potassium Cl 20 mEq SR tablet PO PRN ×2 (07:15)
[2020-05-05] MEDS ORDERED: magnesium Cl slow-release 64mg tablet PO PRN (07:15)
[2020-05-05] MEDS ORDERED: potassium CL 10mEq/100ml bag 100 ML IV PRN (07:15)
[2020-05-05] MEDS: K and/or MAG REPLACEMENT MC SCH ×2 (08:00→20:00)
[2020-05-05] MEDS ORDERED: traMADol 50MG tablet GT PRN (08:30)
[2020-05-05] MEDS ORDERED: POTASSIUM BICARB 20meq eff tab 20 MEQ TABLET.EFF GT PRN (08:55)
[2020-05-05] MEDS: pantoprazole 40 MG vial IV SCH (09:03)
[2020-05-05] MEDS: POTASSIUM BICARB 20meq eff tab 20 MEQ TABLET.EFF GT PRN ×3 (09:04→17:53)
[2020-05-05] MEDS: ascorbic acid 500mg tablet PO SCH ×2 (09:04→20:10)
[2020-05-05] MEDS: metoclopramide 5 mg/ml inj IV SCH (09:05)
[2020-05-05 10:00] VITALS: BP 163/88
--- NOTE | 2020-05-05 12:30 | NUR ---
Increased g tube feeding to 30ml/hr. Increase by 10 ml/hr q4 hrs till goal rate of 70.
[2020-05-05] MEDS ORDERED: simethicone 40mg/0.6ml oral drops 30ml PEG SCH (13:00)
[2020-05-05] MEDS: metoclopramide 10mg tablet PO SCH ×2 (13:45→20:10)
[2020-05-05] MEDS: gabapentin 300mg capsule PO SCH ×2 (13:45→20:11)
[2020-05-05] MEDS: cyclobenzaprine 10mg tablet PEG SCH ×2 (13:45→20:10)
--- NOTE | 2020-05-05 16:30 | NUR ---
Increased tube feeding to 40ml/hr
[2020-05-05 18:00] VITALS: BP 110/77
--- NOTE | 2020-05-05 18:32 | NUR ---
Problems reprioritized. Patient report given, questions answered & plan of care reviewed with Shea PICKARD.
[2020-05-05] MEDS: polyethylene glycol 3350 17gm powd pack GT SCH (20:00)
[2020-05-05] MEDS: methenamine hippurate 1gm tablet PEG SCH (20:10)
[2020-05-05] MEDS: simethicone 80mg chew tab PEG SCH (21:26)
[2020-05-05 22:00] VITALS: BP 128/65
[2020-05-06] MEDS: metoclopramide 10mg tablet PO SCH ×4 (02:44→20:17)
--- NOTE | 2020-05-06 04:33 | NUR ---
turned off feeding for now, as patient c/o feeling full and uncomfortable and is starting to cough. He states that he tastes the stomach acid at this time. 250mL of residual documented.
--- NOTE | 2020-05-06 05:41 | NUR ---
checked residual again for zero. patient stated he no longer feels full. restarted tube feed at 70mL/hr
[2020-05-06 06:00] VITALS: BP 140/71
--- NOTE | 2020-05-06 06:15 | NUR ---
received report from tiara alicia
--- NOTE | 2020-05-06 06:21 | NUR ---
Problems reprioritized. Patient report given, questions answered & plan of care reviewed with NEERAJ Robledo.
[2020-05-06 06:26] LABS: ALANINE AMINOTRANSFERASE 59 U/L (12-78); ALBUMIN 2.4 G/DL (3.4-5.0); ALBUMIN/GLOBULIN RATIO 0.4 (1.1-1.5); ALKALINE PHOSPHATASE 671 IU/L (46-116); ANION GAP 9 (8-16); ASPARTATE AMINO TRANSFERASE 33 U/L (10-37); BASOPHILS % (AUTO) 0.9 % (0-1); BILIRUBIN,TOTAL 0.3 MG/DL (0.1-1.0); BLOOD UREA NITROGEN 13 MG/DL (7-18); BUN/CREATININE RATIO 15.5 (5.4-32.0); CALCIUM 8.7 MG/DL (8.5-10.1); CHLORIDE 108 MMOL/L (99-107); CREATININE 0.84 MG/DL (0.60-1.10); EOSINOPHILS # (AUTO) 0.3 X10'3 (0-0.9); EOSINOPHILS % (AUTO) 4.4 % (0-6); GLUCOSE 111 MG/DL (70-104); HEMATOCRIT 26.8 % (42.0-52.0); HEMOGLOBIN 9.1 g/dl (14.0-17.9); LYMPHOCYTES # (AUTO) 1.4 X10'3 (1.1-4.8); LYMPHOCYTES % (AUTO) 24.1 % (21-51); MAGNESIUM 1.7 MG/DL (1.5-2.4); MEAN CORPUSCULAR HEMOGLOBIN 31.2 PG (27.0-31.0); MEAN CORPUSCULAR HGB CONC 33.9 g/dL (33.0-36.5); MEAN PLATELET VOLUME 6.1 FL (7.4-10.4); MONOCYTES # (AUTO) 0.4 X10'3 (0-0.9); MONOCYTES % (AUTO) 6.4 % (2-12); NEUTROPHILS # (AUTO) 3.7 X10'3 (1.8-7.7); NEUTROPHILS % (AUTO) 64.2 % (42-75); PLATELET COUNT 169 X10'3 (140-440); RED BLOOD COUNT 2.91 X10'6 (4.70-6.10); RED CELL DISTRIBUTION WIDTH 15.8 % (11.5-14.5); SODIUM 143 MMOL/L (135-145); TOTAL CARBON DIOXIDE 25.8 MMOL/L (24-32); TOTAL PROTEIN 7.9 G/DL (6.4-8.2); WHITE BLOOD COUNT 5.8 X10'3 (4.5-11.0); eGFR > 90 ML/MIN
[2020-05-06] MEDS ORDERED: pantoprazole 40mg Tablet.DR PO SCH (07:30)
[2020-05-06] MEDS: polyethylene glycol 3350 17gm powd pack GT SCH ×2 (08:00→20:17)
[2020-05-06] MEDS ORDERED: atorvastatin 20mg tablet PO SCH (08:00)
[2020-05-06] MEDS ORDERED: ARGININE PO SCH (08:00)
[2020-05-06] MEDS: K and/or MAG REPLACEMENT MC SCH ×2 (08:00→20:00)
[2020-05-06] MEDS: MULTIVIT-MIN/FERROUS GLUCONATE 9 MG/15 ML LIQUID GT SCH (08:19)
[2020-05-06] MEDS: methenamine hippurate 1gm tablet PEG SCH ×2 (08:20→20:39)
[2020-05-06] MEDS: ferrous sulfate 300mg/5ml UD oral liquid PO SCH (08:20)
[2020-05-06] MEDS: ascorbic acid 500mg tablet PO SCH ×2 (08:20→20:17)
[2020-05-06] MEDS: mirtazapine 15mg tablet PEG SCH (08:22)
[2020-05-06] MEDS: cyanocobalamin 500mcg tablet PEG SCH (08:22)
[2020-05-06] MEDS: gabapentin 300mg capsule PO SCH ×3 (08:22→22:50)
[2020-05-06] MEDS: levoTHYROXINE 88mcg tablet GT SCH (08:22)
[2020-05-06] MEDS: simethicone 80mg chew tab PEG SCH ×3 (08:23→22:49)
[2020-05-06] MEDS: cyclobenzaprine 10mg tablet PEG SCH ×3 (08:23→21:00)
[2020-05-06] MEDS: pantoprazole 40 MG vial IV SCH (08:24)
[2020-05-06 10:00] VITALS: BP 149/68
--- NOTE | 2020-05-06 11:21 | NUR ---
Yuniel Consult: Pt GTF advanced to RD recommended goal per surgeon and tolerating GRV 0 at this time. Hx biliroth II; receiving Osmolite. LBM 05/05. Yuniel 11 w/ R ischium DTI close w/ no open wounds at this time. Na 143 down from 150 w/ EN advancement. Pending return to care facility today per RN. EN/hydration recs below; to be adjusted as medically indicated by outpatient RD. Recommend: 1. Per surgeon OK to advance tube feedings as tolerated using continuous Osmolite 1.2 with goal rate of 70 mL/hr to provide: 1680 mL total volume/day, 2016 kcal, 93 g protein, and 1378 mL water; advance by 20 mL Q8H as tolerated to goal rate. 2. additional water flush 200ml Q4; monitor serum Na 3. Prealbumin q thursday and , daily weights 4. routine bowel care; continue promotility agent per Addendum: 05/06/20 at [address] Amended: Links added.
--- NOTE | 2020-05-06 14:42 | NUR ---
spoke w/debbi robledo at [facility] about d/c pt and meena told me that they 'don't have transportation on sundays for their patients' meena's number is [phone], i spoke w/case management and set up a ride from [employer] at [phone] to be picked up at 1600, i called meena back and meena told me that there are no rn to receive patient and that pt will have to be received tomorrow and that doc needs to write on the d/c orders about pt meds : 'continue all previous home medication as ordered for g tube' so there are no issues w/pts meds when back at [facility] hospitalist aware of pt not being able to be transported home today
--- NOTE | 2020-05-06 15:39 | NUR ---
PAGER ID: [phone] MESSAGE: Yaima Sharma9 re Mr Abran Fontanez in [phone]. Can we DC tele and transfer to surgical? House convenience. Please advise, thanks.
--- NOTE | 2020-05-06 15:45 | NUR ---
called christy in dietary and left a message about pt not being able to d/c today and that we need a new tube feeding jug for this evening and possibly for part of tomorrow, continue to monitor
--- NOTE | 2020-05-06 17:31 | NUR ---
GAVE REPORT TO NEERAJ WATTERS
[2020-05-06 17:49] VITALS: BP 117/62
--- NOTE | 2020-05-06 17:50 | NUR ---
RECIEVED PT. ORIENTED TO ROOM. CALL LIGHT PROVIDED. VITALS TAKEN.
--- NOTE | 2020-05-06 18:12 | NUR ---
GAVE REPORT TO ALEX PICKARD.
[2020-05-06 18:30] VITALS: BP 155/42
[2020-05-07] VITALS: BP 123/64
[2020-05-07] MEDS: metoclopramide 10mg tablet PO SCH (04:03)
[2020-05-07 05:44] LABS: ALANINE AMINOTRANSFERASE 336 U/L (12-78); ALBUMIN 2.3 G/DL (3.4-5.0); ALBUMIN/GLOBULIN RATIO 0.4 (1.1-1.5); ALKALINE PHOSPHATASE 947 IU/L (46-116); ANION GAP 9 (8-16); ASPARTATE AMINO TRANSFERASE 442 U/L (10-37); BILIRUBIN,TOTAL 0.5 MG/DL (0.1-1.0); BLOOD UREA NITROGEN 18 MG/DL (7-18); BUN/CREATININE RATIO 19.8 (5.4-32.0); CALCIUM 8.3 MG/DL (8.5-10.1); CHLORIDE 103 MMOL/L (99-107); CREATININE 0.91 MG/DL (0.60-1.10); GLUCOSE 111 MG/DL (70-104); MAGNESIUM 1.9 MG/DL (1.5-2.4); POTASSIUM 4.3 MMOL/L (3.5-5.1); PREALBUMIN 15.1 MG/DL (19-36); SODIUM 136 MMOL/L (135-145); TOTAL CARBON DIOXIDE 23.9 MMOL/L (24-32); TOTAL PROTEIN 7.5 G/DL (6.4-8.2); eGFR 83 ML/MIN
--- NOTE | 2020-05-07 06:54 | NUR ---
Problems reprioritized. Patient report given, questions answered & plan of care reviewed with Tiana. Addendum: 05/07/20 at 0655 by Matty Wynn RN Amended: Links added.
[2020-05-07 07:00] VITALS: BP_SYST 123; BP_SYST 124; BP_DIAS 65; BP_DIAS 68
--- NOTE | 2020-05-07 07:03 | NUR ---
Patient in room PRABHU 347. I have received report from NEERAJ Viveros and had the opportunity to ask questions and assume patient care.
[2020-05-07] MEDS ORDERED: VITAMIN K2 100 MCG PEG SCH (08:00)
[2020-05-07] MEDS: K and/or MAG REPLACEMENT MC SCH ×2 (08:00→20:00)
[2020-05-07] MEDS: pantoprazole 40 MG vial IV SCH (08:25)
--- NOTE | 2020-05-07 08:55 | NUR ---
Dr. Ashford ordered to resume patient's TF to be at 30ml/HR.
[2020-05-07] MEDS: ferrous sulfate 300mg/5ml UD oral liquid PO SCH (09:04)
[2020-05-07] MEDS: simethicone 80mg chew tab PEG SCH ×3 (09:04→20:55)
[2020-05-07] MEDS: cyanocobalamin 500mcg tablet PEG SCH (09:05)
[2020-05-07] MEDS: polyethylene glycol 3350 17gm powd pack GT SCH ×2 (09:05→20:00)
[2020-05-07] MEDS: MULTIVIT-MIN/FERROUS GLUCONATE 9 MG/15 ML LIQUID GT SCH (09:05)
[2020-05-07] MEDS: mirtazapine 15mg tablet PEG SCH (09:05)
[2020-05-07] MEDS: levoTHYROXINE 88mcg tablet GT SCH (09:06)
[2020-05-07] MEDS: cyclobenzaprine 10mg tablet PEG SCH ×3 (09:06→20:55)
[2020-05-07] MEDS ORDERED: metoclopramide 10mg tablet PEG SCH (09:23)
--- NOTE | 2020-05-07 09:41 | NUR ---
No residual from peg tube. Tube feeding resumed at 30ml/hr.
--- NOTE | 2020-05-07 10:07 | NUR ---
Received call from Dr. Ashford that patient will have MRCP and to hold tubefeeding and free water flushes for now. Patient notified. Tube feeding on hold.
[2020-05-07] MEDS: methenamine hippurate 1gm tablet PEG SCH ×2 (10:30→20:56)
[2020-05-07 11:00] VITALS: BP 116/68
[2020-05-07] MEDS: gabapentin 300mg capsule PEG SCH ×2 (13:00→20:55)
--- NOTE | 2020-05-07 14:30 | NUR ---
animal husbandry technician in at bedside.
--- NOTE | 2020-05-07 16:49 | NUR ---
Dr. Ashford notified that patient's Xray of abd results in, no MRCP done as MRI machine still down, and tube feeding still on hold and patient is npo. Dr Ashford ordered for tube feeding to remain on hold for now and start patient on Normal Saline IV @ 80ml/hr.
[2020-05-07] MEDS ORDERED: metoclopramide 5 mg/ml inj IV PRN (16:50)
--- NOTE | 2020-05-07 16:59 | NUR ---
Received call from MRI to clarify order for MRCP as patient's results for CT states recommends ERCP after pneumoperitineum resolved. Dr. Ashford notified to call back MRI at [phone].
[2020-05-07] MEDS: metoclopramide 5 mg/ml inj IV SCH ×2 (17:22→20:54)
[2020-05-07] MEDS: normal saline 1000ml 1,000 ML IV SCH ×2 (17:26→21:10)
--- NOTE | 2020-05-07 17:39 | NUR ---
Patient down to MRI.
--- NOTE | 2020-05-07 18:14 | NUR ---
Patient back from MRI.
--- NOTE | 2020-05-07 18:14 | NUR ---
Problems reprioritized. Patient report given, questions answered & plan of care reviewed with NEERAJ Viveros.
--- NOTE | 2020-05-07 18:20 | NUR ---
Problems reprioritized. Patient report given, questions answered & plan of care reviewed with NEERAJ Viveros.
[2020-05-07 18:40] VITALS: BP 98/54
--- NOTE | 2020-05-07 18:43 | NUR ---
Problems reprioritized. Patient report given, questions answered & plan of care reviewed with NEERAJ Viveros.
--- NOTE | 2020-05-07 19:00 | NUR ---
tube feed off. no residual.
[2020-05-07] MEDS: ascorbic acid 500mg tablet PEG SCH (20:56)
[2020-05-07] MEDS: doxycycline inj 100 MG in normal saline 100ml IV soln 100 ML IV SCH (21:10)
[2020-05-08] MEDS: metoclopramide 5 mg/ml inj IV SCH ×4 (02:27→22:02)
[2020-05-08 05:14] LABS: BASOPHILS % (AUTO) 0.4 % (0-1); EOSINOPHILS # (AUTO) 0.2 X10'3 (0-0.9); EOSINOPHILS % (AUTO) 4.3 % (0-6); HEMATOCRIT 23.9 % (42.0-52.0); HEMOGLOBIN 7.9 g/dl (14.0-17.9); LYMPHOCYTES # (AUTO) 0.7 X10'3 (1.1-4.8); MEAN CORPUSCULAR HEMOGLOBIN 30.8 PG (27.0-31.0); MEAN CORPUSCULAR HGB CONC 33.1 g/dL (33.0-36.5); MEAN CORPUSCULAR VOLUME 93.1 FL (78-98); MEAN PLATELET VOLUME 6.3 FL (7.4-10.4); MONOCYTES # (AUTO) 0.2 X10'3 (0-0.9); MONOCYTES % (AUTO) 3.6 % (2-12); NEUTROPHILS # (AUTO) 4.3 X10'3 (1.8-7.7); NEUTROPHILS % (AUTO) 78.7 % (42-75); PLATELET COUNT 123 X10'3 (140-440); RED BLOOD COUNT 2.57 X10'6 (4.70-6.10); RED CELL DISTRIBUTION WIDTH 16.1 % (11.5-14.5); WHITE BLOOD COUNT 5.4 X10'3 (4.5-11.0)
[2020-05-08 05:40] LABS: ALANINE AMINOTRANSFERASE 234 U/L (12-78); ALBUMIN 2.3 G/DL (3.4-5.0); ALBUMIN/GLOBULIN RATIO 0.5 (1.1-1.5); ALKALINE PHOSPHATASE 763 IU/L (46-116); ANION GAP 11 (8-16); ASPARTATE AMINO TRANSFERASE 168 U/L (10-37); BILIRUBIN,TOTAL 0.5 MG/DL (0.1-1.0); BLOOD UREA NITROGEN 19 MG/DL (7-18); BUN/CREATININE RATIO 22.4 (5.4-32.0); CALCIUM 8.3 MG/DL (8.5-10.1); CHLORIDE 105 MMOL/L (99-107); CREATININE 0.85 MG/DL (0.60-1.10); GLUCOSE 84 MG/DL (70-104); POTASSIUM 3.4 MMOL/L (3.5-5.1); SODIUM 139 MMOL/L (135-145); TOTAL CARBON DIOXIDE 23.5 MMOL/L (24-32); TOTAL PROTEIN 7.2 G/DL (6.4-8.2); eGFR 90 ML/MIN
--- NOTE | 2020-05-08 06:40 | NUR ---
Problems reprioritized. Patient report given, questions answered & plan of care reviewed with QUIQUE. Addendum: 05/08/20 at 0641 by Matty Wynn RN Amended: Links added.
[2020-05-08 07:10] VITALS: BP 139/104
[2020-05-08] MEDS: K and/or MAG REPLACEMENT MC SCH ×2 (08:00→20:00)
[2020-05-08] MEDS: cyclobenzaprine 10mg tablet PEG SCH ×3 (09:01→21:42)
[2020-05-08] MEDS: doxycycline inj 100 MG in normal saline 100ml IV soln 100 ML IV SCH ×2 (09:01→21:53)
[2020-05-08] MEDS: polyethylene glycol 3350 17gm powd pack GT SCH ×2 (09:01→20:00)
[2020-05-08] MEDS: cyanocobalamin 500mcg tablet PEG SCH (09:01)
[2020-05-08] MEDS: MULTIVIT-MIN/FERROUS GLUCONATE 9 MG/15 ML LIQUID GT SCH (09:01)
[2020-05-08] MEDS: pantoprazole 40 MG vial IV SCH (09:01)
[2020-05-08] MEDS: ascorbic acid 500mg tablet PEG SCH ×2 (09:02→21:40)
[2020-05-08] MEDS: atorvastatin 20mg tablet PEG SCH (09:02)
[2020-05-08] MEDS: ferrous sulfate 300mg/5ml UD oral liquid PEG SCH (09:02)
[2020-05-08] MEDS: simethicone 80mg chew tab PEG SCH ×3 (09:02→21:46)
[2020-05-08] MEDS: methenamine hippurate 1gm tablet PEG SCH ×2 (09:03→21:48)
[2020-05-08] MEDS: levoTHYROXINE 88mcg tablet GT SCH (09:03)
[2020-05-08] MEDS: mirtazapine 15mg tablet PEG SCH (09:03)
[2020-05-08] MEDS: gabapentin 300mg capsule PEG SCH ×3 (09:03→21:40)
[2020-05-08 11:44] VITALS: BP 125/81
[2020-05-08] MEDS: normal saline 1000ml 1,000 ML IV SCH (13:04)
[2020-05-08] MEDS ORDERED: magnesium Cl slow-release 64mg tablet PO PRN (15:30)
[2020-05-08] MEDS ORDERED: magnesium 2GM in 50ml NS 50 ML IV PRN (15:30)
[2020-05-08] MEDS ORDERED: magnesium 4gm in 100ml NS 100 ML IV PRN (15:30)
[2020-05-08] MEDS ORDERED: potassium CL 10mEq/100ml bag 100 ML IV PRN (15:30)
[2020-05-08] MEDS ORDERED: potassium Cl 20mEq/100mL bag 100 ML IV PRN (15:30)
[2020-05-08] MEDS ORDERED: potassium Cl 20 mEq SR tablet PO PRN ×2 (15:30)
[2020-05-08] MEDS ORDERED: POTASSIUM BICARB 20meq eff tab 20 MEQ TABLET.EFF PO PRN ×2 (15:40→15:41)
--- NOTE | 2020-05-08 16:30 | NUR ---
tube feeding resumed at 30ml/hr.
[2020-05-08 18:00] VITALS: BP 145/76
--- NOTE | 2020-05-08 18:27 | NUR ---
Patient in room [facility] 347. I have received report from NEERAJ Montiel and had the opportunity to ask questions and assume patient care.
--- NOTE | 2020-05-08 18:40 | NUR ---
Problems reprioritized. Patient report given, questions answered & plan of care reviewed with NEERAJ Duff.
[2020-05-08] MEDS: lactobacillus rhamnosus 10,000 MMU CELLS/CAPSULE PO SCH (21:44)
[2020-05-09] VITALS: BP 150/74
[2020-05-09] MEDS: metoclopramide 5 mg/ml inj IV SCH ×4 (02:00→20:55)
[2020-05-09] MEDS: normal saline 1000ml 1,000 ML IV SCH ×2 (04:07→18:32)
[2020-05-09 06:01] LABS: BASOPHILS % (AUTO) 0.6 % (0-1); EOSINOPHILS # (AUTO) 0.2 X10'3 (0-0.9); EOSINOPHILS % (AUTO) 3.5 % (0-6); HEMATOCRIT 24.5 % (42.0-52.0); HEMOGLOBIN 8.2 g/dl (14.0-17.9); LYMPHOCYTES # (AUTO) 0.7 X10'3 (1.1-4.8); LYMPHOCYTES % (AUTO) 14.3 % (21-51); MEAN CORPUSCULAR HEMOGLOBIN 30.7 PG (27.0-31.0); MEAN CORPUSCULAR HGB CONC 33.4 g/dL (33.0-36.5); MEAN PLATELET VOLUME 6.1 FL (7.4-10.4); MONOCYTES # (AUTO) 0.3 X10'3 (0-0.9); MONOCYTES % (AUTO) 4.9 % (2-12); NEUTROPHILS % (AUTO) 76.7 % (42-75); PLATELET COUNT 159 X10'3 (140-440); RED BLOOD COUNT 2.66 X10'6 (4.70-6.10); RED CELL DISTRIBUTION WIDTH 15.3 % (11.5-14.5); WHITE BLOOD COUNT 5.2 X10'3 (4.5-11.0)
[2020-05-09 06:32] LABS: ALANINE AMINOTRANSFERASE 168 U/L (12-78); ALBUMIN 2.4 G/DL (3.4-5.0); ALBUMIN/GLOBULIN RATIO 0.4 (1.1-1.5); ALKALINE PHOSPHATASE 709 IU/L (46-116); ANION GAP 11 (8-16); ASPARTATE AMINO TRANSFERASE 73 U/L (10-37); BILIRUBIN,TOTAL 0.4 MG/DL (0.1-1.0); BLOOD UREA NITROGEN 15 MG/DL (7-18); BUN/CREATININE RATIO 19.7 (5.4-32.0); CALCIUM 8.6 MG/DL (8.5-10.1); CHLORIDE 108 MMOL/L (99-107); CREATININE 0.76 MG/DL (0.60-1.10); GLUCOSE 124 MG/DL (70-104); POTASSIUM 3.6 MMOL/L (3.5-5.1); SODIUM 143 MMOL/L (135-145); TOTAL CARBON DIOXIDE 24.5 MMOL/L (24-32); TOTAL PROTEIN 7.8 G/DL (6.4-8.2); eGFR > 90 ML/MIN
--- NOTE | 2020-05-09 06:41 | NUR ---
Problems reprioritized. Patient report given, questions answered & plan of care reviewed with NEERAJ Bryson.
[2020-05-09 07:32] VITALS: BP 150/68
[2020-05-09] MEDS: K and/or MAG REPLACEMENT MC SCH ×2 (08:00→20:00)
[2020-05-09] MEDS: lactobacillus rhamnosus 10,000 MMU CELLS/CAPSULE PO SCH ×2 (08:22→20:53)
[2020-05-09] MEDS: doxycycline inj 100 MG in normal saline 100ml IV soln 100 ML IV SCH ×2 (08:23→20:51)
[2020-05-09] MEDS: MULTIVIT-MIN/FERROUS GLUCONATE 9 MG/15 ML LIQUID GT SCH (08:23)
[2020-05-09] MEDS: cyclobenzaprine 10mg tablet PEG SCH ×3 (08:23→20:51)
[2020-05-09] MEDS: methenamine hippurate 1gm tablet PEG SCH ×2 (08:24→20:52)
[2020-05-09] MEDS: atorvastatin 20mg tablet PEG SCH (08:24)
[2020-05-09] MEDS: gabapentin 300mg capsule PEG SCH ×3 (08:24→20:53)
[2020-05-09] MEDS: levoTHYROXINE 88mcg tablet GT SCH (08:24)
[2020-05-09] MEDS: simethicone 80mg chew tab PEG SCH ×3 (08:25→20:52)
[2020-05-09] MEDS: mirtazapine 15mg tablet PEG SCH (08:25)
[2020-05-09] MEDS: cyanocobalamin 500mcg tablet PEG SCH (08:25)
[2020-05-09] MEDS: polyethylene glycol 3350 17gm powd pack GT SCH ×2 (08:26→20:00)
[2020-05-09] MEDS: ascorbic acid 500mg tablet PEG SCH ×2 (08:26→20:52)
[2020-05-09] MEDS: pantoprazole 40 MG vial IV SCH (08:26)
[2020-05-09] MEDS: ferrous sulfate 300mg/5ml UD oral liquid PEG SCH (08:28)
--- NOTE | 2020-05-09 08:52 | NUR ---
Increased patient to goal of 70nl/hr on tube feed per MD orders. patients residual prior to goal was 140ml's
--- NOTE | 2020-05-09 10:47 | NUR ---
Keily Moon, CG at pt's home, called for update. Keily stated her concerns that at his residence they shut off the TF when there's residual of 100cc as pt frequently will "throw up and aspirate" at that amount. Keily also stated concerns that pt usually puts out 100-200cc urine qHour. The staff bladder scans this pt q3h through the day, and have found up to 2300cc in bladder being retained d/t clogged catheter from sediment. CG states they flush FC w/ sterile water to clear the sediment at the facility. NEERAJ Bryson, aware.
[2020-05-09 11:00] VITALS: BP 144/67
--- NOTE | 2020-05-09 16:12 | NUR ---
Reassessment: Pt TF held yesterday for 200ml GRV; not warranted given current GRV Policy and at same time as 200ml water flush w/ almost no GRV prior. TF resumed at 30ml/hr today and to advance 10ml Q4 per MD order. Pt previously tolerating TF at goal. Receiving MVI/mineral and electrolyte replacement as needed. LBM [address] recommended [employer] BSS given prior admit 02/24/2020 was placed on pureed/thin liquid diet per [employer] recs and eating well. Will continue to monitor. Recommend: 1. Return TF to goal rate as tolerated using Osmolite 1.2 with goal rate of 70 mL/hr to provide: 1680 mL total volume/day, 2016 kcal, 93 g protein, and 1378 mL water; advance by 20 mL Q8H as tolerated to goal rate. 2. additional water flush 200ml Q4; monitor serum Na 3. Prealbumin q thursday and , daily weights 4. routine bowel care; continue promotility agent per MD 5. Monitor for [employer] BSS recs given pureed/thin diet prior admit 02/27 and eating well in addition to GTF. Addendum: 05/09/20 at [address] Amended: Links added.
[2020-05-09 18:00] VITALS: BP 137/72
--- NOTE | 2020-05-09 18:30 | NUR ---
Problems reprioritized. Patient report given, questions answered & plan of care reviewed with Omega PICKARD and Sho PICKARD.
--- NOTE | 2020-05-09 18:41 | NUR ---
I have received report from, shane stovall with Louie Berkowitz RN orientating to unit this shift NEERAJ Bryson and had the opportunity to ask questions and assume patient care.
--- NOTE | 2020-05-09 19:02 | NUR ---
Patient in room [facility] 347. I have received report from NEERAJ Bryson and had the opportunity to ask questions and assume patient care.
[2020-05-10] VITALS: BP 158/66
[2020-05-10] MEDS: metoclopramide 5 mg/ml inj IV SCH ×2 (02:25→09:07)
[2020-05-10 05:53] LABS: BASOPHILS % (AUTO) 0.5 % (0-1); EOSINOPHILS # (AUTO) 0.2 X10'3 (0-0.9); EOSINOPHILS % (AUTO) 3.2 % (0-6); HEMOGLOBIN 8.1 g/dl (14.0-17.9); LYMPHOCYTES # (AUTO) 1.3 X10'3 (1.1-4.8); LYMPHOCYTES % (AUTO) 25.3 % (21-51); MEAN CORPUSCULAR HEMOGLOBIN 31.1 PG (27.0-31.0); MEAN CORPUSCULAR HGB CONC 33.7 g/dL (33.0-36.5); MEAN CORPUSCULAR VOLUME 92.2 FL (78-98); MEAN PLATELET VOLUME 6.3 FL (7.4-10.4); MONOCYTES # (AUTO) 0.4 X10'3 (0-0.9); NEUTROPHILS # (AUTO) 3.2 X10'3 (1.8-7.7); PLATELET COUNT 157 X10'3 (140-440); RED CELL DISTRIBUTION WIDTH 15.5 % (11.5-14.5)
--- NOTE | 2020-05-10 06:07 | NUR ---
I agree with NEERAJ Berkowitzcover cutter and report given to NEERAJ Bryson
[2020-05-10 06:15] LABS: ALANINE AMINOTRANSFERASE 119 U/L (12-78); ALBUMIN 2.3 G/DL (3.4-5.0); ALBUMIN/GLOBULIN RATIO 0.4 (1.1-1.5); ALKALINE PHOSPHATASE 602 IU/L (46-116); ANION GAP 10 (8-16); ASPARTATE AMINO TRANSFERASE 43 U/L (10-37); BILIRUBIN,TOTAL 0.2 MG/DL (0.1-1.0); BLOOD UREA NITROGEN 16 MG/DL (7-18); BUN/CREATININE RATIO 21.1 (5.4-32.0); CALCIUM 8.3 MG/DL (8.5-10.1); CHLORIDE 108 MMOL/L (99-107); CREATININE 0.76 MG/DL (0.60-1.10); GLUCOSE 102 MG/DL (70-104); POTASSIUM 3.6 MMOL/L (3.5-5.1); SODIUM 144 MMOL/L (135-145); TOTAL CARBON DIOXIDE 25.8 MMOL/L (24-32); TOTAL PROTEIN 7.5 G/DL (6.4-8.2); eGFR > 90 ML/MIN
--- NOTE | 2020-05-10 06:25 | NUR ---
Problems reprioritized. Patient report given, questions answered & plan of care reviewed with NEERAJ Bryson.
--- NOTE | 2020-05-10 07:05 | NUR ---
Patient in room [facility] 347. I have received report from Sho PICKARD and had the opportunity to ask questions and assume patient care.
[2020-05-10 07:49] VITALS: BP 152/78
[2020-05-10] MEDS: K and/or MAG REPLACEMENT MC SCH (08:00)
[2020-05-10] MEDS: pantoprazole 40 MG vial IV SCH (08:00)
[2020-05-10] MEDS ORDERED: ARGI500T GT (08:46)
[2020-05-10] MEDS: normal saline 1000ml 1,000 ML IV SCH (09:05)
[2020-05-10] MEDS: polyethylene glycol 3350 17gm powd pack GT SCH (09:06)
[2020-05-10] MEDS: doxycycline inj 100 MG in normal saline 100ml IV soln 100 ML IV SCH (09:06)
[2020-05-10] MEDS: MULTIVIT-MIN/FERROUS GLUCONATE 9 MG/15 ML LIQUID GT SCH (09:06)
[2020-05-10] MEDS: ferrous sulfate 300mg/5ml UD oral liquid PEG SCH (09:06)
[2020-05-10] MEDS: lactobacillus rhamnosus 10,000 MMU CELLS/CAPSULE PO SCH (09:06)
[2020-05-10] MEDS: cyclobenzaprine 10mg tablet PEG SCH ×2 (09:06→12:46)
[2020-05-10] MEDS: ascorbic acid 500mg tablet PEG SCH (09:07)
[2020-05-10] MEDS: methenamine hippurate 1gm tablet PEG SCH (09:07)
[2020-05-10] MEDS: levoTHYROXINE 88mcg tablet GT SCH (09:08)
[2020-05-10] MEDS: cyanocobalamin 500mcg tablet PEG SCH (09:08)
[2020-05-10] MEDS: atorvastatin 20mg tablet PEG SCH (09:08)
[2020-05-10] MEDS: gabapentin 300mg capsule PEG SCH ×2 (09:08→12:46)
[2020-05-10] MEDS: mirtazapine 15mg tablet PEG SCH (09:08)
[2020-05-10] MEDS: simethicone 80mg chew tab PEG SCH ×2 (09:09→12:46)
[2020-05-10 11:00] VITALS: BP 124/72
--- NOTE | 2020-05-10 11:26 | NUR ---
Contacted Keily at patient facility and she is aware patients covid came back negative. She is also aware there is a possibility patient will be discharged today. Per Keily please call her at least 2 hours prior to patients discharge so she can make arrangements.
--- NOTE | 2020-05-10 18:44 | NUR ---
Patients discharge instructions reviewed with patient and copy faxed to [facility] at facility, Patients IV dc'd cannula intact patient transferred to his wheelchair via maria luz with staff from patients facility present patients has shaving bag, watch and he was sent home with his med boots. Patients day care aide took patient to their vehicle.
[2020-05-11] MEDS ORDERED: AMOX400S76 PO (23:18)
== END 2020-05-10 13:39 | disposition home or self-care (01) | DRG 394 ==
LOC: ER 10:06 → ED HOLD 14:30 → ORTHO 4S 17:50 → SUR 3N 05-06 17:40
PROVIDERS: ADMIT Internal Medicine; ATTEND Internal Medicine
PROC: CF1C1ZZ Planar Nuclear Medicine Imaging of Hepatobiliary System, All using Technetium 99m (Tc-99m) (ICD-10-PCS; principal; 2020-05-03)
PROC: BD16YZZ Fluoroscopy of Upper GI and Small Bowel using Other Contrast (ICD-10-PCS; 2020-05-03)
DX: K63.1 Perforation of intestine (nontraumatic) (principal); C94.6 Myelodysplastic disease, not elsewhere classified; E87.0 Hyperosmolality and hypernatremia; N39.0 Urinary tract infection, site not specified; F70 Mild intellectual disabilities; I12.9 Hypertensive chronic kidney disease with stage 1 through stage 4 chronic kidney disease, or unspecified chronic kidney disease; E03.9 Hypothyroidism, unspecified; E78.5 Hyperlipidemia, unspecified; F32.9 Major depressive disorder, single episode, unspecified; G35 Multiple sclerosis; G80.9 Cerebral palsy, unspecified; I25.10 Atherosclerotic heart disease of native coronary artery without angina pectoris; K21.9 Gastro-esophageal reflux disease without esophagitis; N18.9 Chronic kidney disease, unspecified; N40.0 Benign prostatic hyperplasia without lower urinary tract symptoms; E05.90 Thyrotoxicosis, unspecified without thyrotoxic crisis or storm; G89.29 Other chronic pain; E87.6 Hypokalemia; B95.62 Methicillin resistant Staphylococcus aureus infection as the cause of diseases classified elsewhere; M54.9 Dorsalgia, unspecified; K83.8 Other specified diseases of biliary tract; Z20.828 Contact with and (suspected) exposure to other viral communicable diseases; D64.9 Anemia, unspecified; R74.01 Elevation of levels of liver transaminase levels; R94.8 Abnormal results of function studies of other organs and systems; Z82.49 Family history of ischemic heart disease and other diseases of the circulatory system; I25.2 Old myocardial infarction; Z93.1 Gastrostomy status; Z95.5 Presence of coronary angioplasty implant and graft; Z88.5 Allergy status to narcotic agent; Z88.8 Allergy status to other drugs, medicaments and biological substances; Z91.040 Latex allergy status; Z79.899 Other long term (current) drug therapy; Z90.49 Acquired absence of other specified parts of digestive tract
CPT/HCPCS: 36415; 74019; 74176; 74181; 76937; 78226; 80048; 80053; 80076; 81001; 83605; 83690; 83735; 84132; 84134; 84145; 84484; 85025; 87040; 87077; 87088; 87186; 87635; 92508; 92616; 96365; 99285; A9537; C9113; G0378; J2270; J2543; J2765; J3480; J3490; J7030; J7070; J8597; Q9963

== ENCOUNTER 2020-05-11 22:36 | Emergency (ER) | payer MEDICARE, MEDICAID ==
[~2020-05-11] VITALS: Ht 180.3 cm; Wt 75.9 kg
[~2020-05-11 22:36] MED LIST changes: +ARGI500T GT; +ARGI500T PO; +FERR15DR PO; +METH1TAB32 GT; +[UNRECOGNIZED DRUG - CODE] GT; -diatr meglu/diatrizoate 30ml oral sol.-(3 dose) bottle ONE
[2020-05-11] MEDS ORDERED: amox tr/clav. pot 400mg/5ml 100ml suspension PEG SCH (23:10)
[2020-05-11] MEDS ORDERED: AMOX400S76 PO (23:18)
--- NOTE | 2020-05-11 23:51 | NUR ---
CALLED [facility] FOR TRANSPORT TO [facility]. ETA FOR SPECK DYER IS [phone]
--- NOTE | 2020-05-12 02:58 | NUR ---
Pt resting comfortably; snoring. Pt O2 sat 88% on 2L via NC, pt breathing through mouth. NC turned to blow toward pt mouth. O2 sat increased to 95%.
--- NOTE | 2020-05-12 06:20 | NUR ---
INFORMED BY NURSE SUKHI THAT THE SHE SPOKE WITH A NURSE CARING FOR THE PT DURING THE NIGHT ABOUT HIS TREATMENT AND PLAN TO GO HOME BUT THAT THEY DON'T HAVE A RIDE AND THEN [facility] DOES NOT HAVE A STAFF MEMBER TO TAKE HIM HOME. WILL CALL WHEN [facility] ARRIVES TO LET THE FACILITY KNOW THAT HE HAS LEFT THE FACILITY AND IS ON HIS WAY BACK.
--- NOTE | 2020-05-12 07:00 | NUR ---
pt sleeping. easily aroused. no obvious distress.
--- NOTE | 2020-05-12 07:42 | NUR ---
Note jackielucille in EDM - 05/12/20 at 0743 by PATRICIO pt states her right leg hurts off and on. looked at leg. no obvious issues other than her legs are swollen bilaterally with pitting edema.
--- NOTE | 2020-05-12 07:44 | NUR ---
waiting on [facility] still. pt sleeping.
--- NOTE | 2020-05-12 08:05 | NUR ---
[facility] called and states that they are on their way to fruit picker pt.
[2020-05-12 08:18] VITALS: BP 103/81
--- NOTE | 2020-05-12 09:03 | NUR ---
JUST SPOKE WITH NURSE AT THE FACILITY ON [facility] (I THINK HER NAME WAS TORIBIO) AND SHE WAS ASKING WHY SOMEONE DID NOT CALL THEM AND LET THEM KNOW HE WAS COMING BACK. INFORMED HER I CALLED THE NUMBER GIVEN FOR [facility] AND NO ONE ANSWERED BUT I HAD ALSO BEEN INFORMED THAT THEY HAD ALREADY BEEN CALLED IN THE NIGHT AND INFORMED OF THE SITUATION. SHE INFORMED ME THAT [facility] IS NOT ON DUTY AT THIS TIME AND THIS IS WHY SHE DID NOT ANSWER. I INFORMED HER THAT NO OTHER NUMBER HAD BEEN GIVEN TO CONTACT FOR THE NURSING STAFF AND WE TRIED LOOKING UP ANOTHER NUMBER ONLINE BUT DID NOT FIND ONE. SHE STATES SHE HAS A DOCTOR'S ORDER TO SEND THE PT BACK TO THE ER IF HE IS VOMITING AND THAT HE LOOKS LIKE HE WILL VOMIT. SHE STATES SHE AND THE STAFF HAVE ORDERS FOR MEDICATIONS FOR THE PT AND ALWAYS TRY THESE MEDS BEFORE SENDING HIM IN TO THE ER. SPOKE WITH HER ABOUT THE RESULTS OF THE XRAY AND THE DISCHARGE PRESCRIPTION AND TREATMENT. INFORMED HER THAT WE WILL TAKE THE PT BACK BUT THAT THERE ISN'T ANY SPECIAL TREATMENT HERE.
--- NOTE | 2020-05-12 09:36 | NUR ---
TORIBIO CALLED BACK ASKING MORE QUESTIONS. INFORMED HER OF MORE PT INFORMATION WE FOUND HERE. SHE ALSO ASKED FOR A DOCTOR'S ORDER FOR THE BACTRIM TO BE STOPPED AND TO RESUME ALL OTHER MEDS AND THE AUGMENTIN TO BE GIVEN WHEN AVAILABLE.
== END 2020-05-12 08:00 | disposition home or self-care (01) ==
LOC: ER 22:36
DX: R11.10 Vomiting, unspecified (principal); R93.89 Abnormal findings on diagnostic imaging of other specified body structures; R05 Cough; I25.2 Old myocardial infarction; K21.9 Gastro-esophageal reflux disease without esophagitis; E05.90 Thyrotoxicosis, unspecified without thyrotoxic crisis or storm; G89.29 Other chronic pain; N18.9 Chronic kidney disease, unspecified; Z87.440 Personal history of urinary (tract) infections; Z98.890 Other specified postprocedural states; Z88.5 Allergy status to narcotic agent; Z88.8 Allergy status to other drugs, medicaments and biological substances; Z91.040 Latex allergy status; Z79.2 Long term (current) use of antibiotics; Z79.899 Other long term (current) drug therapy
CPT/HCPCS: 71045; 99285

== ENCOUNTER 2020-06-01 08:54 | Day surgery (SDC) | payer MEDICARE, MEDICAID ==
[~2020-06-01] VITALS: Ht 182.9 cm; Wt 77.7 kg
[~2020-06-01 08:54] MED LIST changes: -ACET325C6 GT; -AMOX-580 GT; -ARGI500P3 GT; -ARGI500T PO; -BACI1PAC7 TOP; -BISA10SU60 RC; -DEXT15DR28 EACHEYE; -FAMO20TA8 GT; -FERR15DR GT; -KEN0.1O TP; -LACT1CAP26 GT; -LEVO500T89 GT; -LOPE-190 GT; -MAGN296S68 GT; -MAGN400O6 GT; -NA P230E RC; -NEOM1AMP BLADIN; -NYSPWD TP; -NYST30CR2 TP; -ONDA4TAB12 GT; -[UNRECOGNIZED DRUG - CODE] NG
[2020-06-01 09:30] VITALS: BP 130/72
[2020-06-01] MEDS ORDERED: iohexol 300 MG/1 ML 50ml polymer ONE ×3 (10:09→10:38)
[2020-06-01 10:45] VITALS: BP 143/72
[2020-06-01 11:00] VITALS: BP 122/73
== END 2020-06-01 11:25 | disposition home or self-care (01) ==
LOC: SSTAY O 08:54
PROVIDERS: ATTEND Radiology Vascular & Interventional Radiology
DX: K94.23 Gastrostomy malfunction (principal); Z88.5 Allergy status to narcotic agent; Z88.8 Allergy status to other drugs, medicaments and biological substances; Y83.8 Other surgical procedures as the cause of abnormal reaction of the patient, or of later complication, without mention of misadventure at the time of the procedure; Y92.89 Other specified places as the place of occurrence of the external cause
CPT/HCPCS: 49450; C1729; C1769; Q9967

== ENCOUNTER 2020-06-08 07:51 | Outpatient (CLI) | payer MEDICARE, MEDICAID | END 2020-06-08 23:59 | disposition home or self-care (01) | LOC: RAD 07:51 | DX: N13.30 Unspecified hydronephrosis (principal); N28.89 Other specified disorders of kidney and ureter | CPT/HCPCS: 76775 ==

== ENCOUNTER 2020-06-20 01:01 | Emergency (ER) | payer MEDICARE, MEDICAID ==
[~2020-06-20] VITALS: Ht 182.9 cm; Wt 68.2 kg
--- NOTE | 2020-06-20 01:21 | NUR ---
CAREGIVER AT BEDSIDE STATES WHENEVER PT THROWS UP HE MUST BE SEEN AT THE ER BECUASE OF HIS RISK FOR ASPIRATION PNEUMONIA.
--- NOTE | 2020-06-20 02:20 | NUR ---
DR. GILLETTE ON PHONE WITH [facility], EXPLAINING TO [facility] THE DISCHARGE INSTRUCTIONS AND REASON WHY PATIENT IS DC READY
--- NOTE | 2020-06-20 03:00 | NUR ---
Pt caregiver states charge nurse at [facility] is not authorized to send transport at this time and refuses to approve an ambulance transport. Pt charge nurse explains at 0730 pt will have transport to come get him.
--- NOTE | 2020-06-20 06:14 | NUR ---
Spoke to charge nurse at [facility] who states pt's ride will be here at [phone].
[2020-06-20] MEDS ORDERED: ondansetron 4mg rapidly disintigrating tab PO STA (07:04)
[2020-06-20 08:09] VITALS: BP 109/75
== END 2020-06-20 08:53 | disposition home or self-care (01) ==
LOC: ER 01:02
DX: K29.00 Acute gastritis without bleeding (principal); I25.2 Old myocardial infarction; K21.9 Gastro-esophageal reflux disease without esophagitis; N18.9 Chronic kidney disease, unspecified; E05.90 Thyrotoxicosis, unspecified without thyrotoxic crisis or storm; G89.29 Other chronic pain; Z88.5 Allergy status to narcotic agent; Z88.8 Allergy status to other drugs, medicaments and biological substances; Z91.040 Latex allergy status; Z79.899 Other long term (current) drug therapy
CPT/HCPCS: 71045; 99285